=== PATIENT | female | born 1990 | race Caucasian/White ===

== ENCOUNTER → 2021-07-20 12:52 | Outpatient (BNVA) | payer OTHER, SELFPAY | PROVIDERS: PCP Physician Assistant; Visit Provider Physician Assistant Surgical ==

== ENCOUNTER → 2021-07-23 08:13 | Outpatient (BNVA) | payer OTHER, SELFPAY | PROVIDERS: PCP Physician Assistant; Visit Provider Surgery ==

== ENCOUNTER 2021-08-08 12:40 | Outpatient (REF) | payer OTHER, SELFPAY ==
--- NOTE | ~2021-08-08 | XR_ITS ---
EXAMINATION: XR CHEST CLINICAL INFORMATION: Morbid obesity COMPARISON: None TECHNIQUE: 2 views of the chest were obtained. FINDINGS: No significant abnormality is noted involving the heart, lungs, mediastinum, bony thorax or soft tissues. XR/XR chest 2V IMPRESSION: No acute disease.
--- NOTE | 2021-08-08 12:55 | ECG_ITS ---
Test Reason : E66.01 Blood Pressure : / mmHG Vent. Rate : 080 BPM Atrial Rate : 080 BPM P-R Int : 194 ms QRS Dur : 102 ms QT Int : 392 ms P-R-T Axes : 077 066 053 degrees QTc Int : 452 ms Normal sinus rhythm Normal ECG No previous ECGs available Referred By: Kaiden Kim Electronically Signed By:SMILEY PERKINS
== END 2021-08-08 12:41 | disposition home or self-care (01) ==
LOC: HO.XRAY 12:40
PROVIDERS: Visit Provider Surgery
DX: E66.01 Morbid (severe) obesity due to excess calories (principal); G47.33 Obstructive sleep apnea (adult) (pediatric); Z99.89 Dependence on other enabling machines and devices
CPT/HCPCS: 71046; 93005

== ENCOUNTER 2021-08-11 08:38 | Outpatient (REF) | payer OTHER, SELFPAY ==
[2021-08-11 08:47] LABS: MANUAL DIFF FLAG NO
[2021-08-11 09:30] LABS: Basophils Percent Auto 0.6 % (0-2); Eosinophils Absolute Auto 0.2 X10*3/uL (0.0-0.4); Eosinophils Percent Auto 2.7 % (0-4); Hematocrit 43.2 % (37.0-47.0); Hemoglobin 14.1 g/dl (12.0-16.0); Imm Gran Abs Auto 0.02 X10*3/uL (0.00-0.03); Imm Gran Pct Auto 0.3 % (0.0-0.4); Lymphocytes Absolute Auto 1.8 X10*3/uL (1.2-4.9); Lymphocytes Percent Auto 28.9 % (20-40); Mean Corpuscular HGB Conc 32.6 g/dl (31.0-35.0); Mean Corpuscular Volume 85.9 fL (80.0-98.0); Mean Platelet Volume 9.5 fL (9.4-12.3); Monocytes Absolute Auto 0.5 X10*3/uL (0.1-1.2); Monocytes Percent Auto 8.1 % (2-11); Neutrophils Absolute Auto 3.7 x10*3/uL (2.0-8.3); Neutrophils Percent Auto 59.4 % (45-73); Platelet Count 269 X10*3/uL (160-400); Red Blood Count 5.03 X10*6/uL (4.20-5.50); Red Cell Distribution Width 12.8 % (11.0-16.0); White Blood Count 6.2 X10*3/uL (4.8-10.8)
[2021-08-11 09:49] LABS: Alanine Aminotransferase 33 U/L (0-31); Albumin Level 4.3 g/dL (3.5-5.0); Alkaline Phosphatase 71 U/L (39-117); Anion Gap 14 (12-20); Aspartate Amino Transferase 30 U/L (5-31); Bilirubin Total 0.8 mg/dL (0.0-1.0); Blood Urea Nitrogen 16 mg/dL (9-16); C Reactive Protein 3.63 mg/dL (< or = 0.50); Calcium 9.7 mg/dL (8.4-10.2); Carbon Dioxide 25 mmol/L (22-29); Chloride 104 mmol/L (96-108); Cholesterol 176 mg/dL; Estimated Glomerular Filt Rate > 60; Glucose Random 100 mg/dL (60-115); HDL Cholesterol 45 mg/dL; Iron 59 mcg/dL (30-160); LDL Cholesterol Calculated 111 mg/dl; Percent Iron Saturation 17 % (15-50); Potassium 4.3 mmol/L (3.3-5.1); Sodium 139 mmol/L (135-145); Total Iron Binding Capacity 346 mcg/dL (228-428); Total Protein 7.2 g/dL (6.5-8.0); Triglycerides 100 mg/dL; Unsaturated Iron Binding 287 ug/dL
[2021-08-11 10:12] LABS: Estimated Average Glucose 114 mg/dL; Hemoglobin A1c % 5.6 %
[2021-08-11 10:32] LABS: Ferritin 69 ng/mL (10-122); TSH reflex Free T4 1.97 uIU/mL (0.32-4.0); Vitamin D 25-OH Total 20.7 ng/mL (>30)
[2021-08-11 11:02] LABS: Insulin 16 uU/mL (2-29)
[2021-08-13 04:03] LABS: Folate 17.4 ng/mL (> or = 4.0); Vitamin B12 607 pg/mL (200-900)
[2021-08-14 14:51] LABS: Calcium (PTHI) 9.5 mg/dL (8.6-10.2); PTHI 27 pg/mL (14-64)
[2021-08-15 12:32] LABS: Zinc 72 mcg/dL (60-130)
[2021-08-15 14:41] LABS: Vitamin B1 12 nmol/L (8-30)
[2021-08-15 15:01] LABS: Vitamin A 50 mcg/dL (38-98)
== END 2021-08-11 08:39 | disposition home or self-care (01) ==
LOC: HO.LAB 08:38
PROVIDERS: PCP Student in an Organized Health Care Education/Training Program; Visit Provider Surgery
DX: E66.01 Morbid (severe) obesity due to excess calories (principal); G47.33 Obstructive sleep apnea (adult) (pediatric); Z99.89 Dependence on other enabling machines and devices
CPT/HCPCS: 36415; 80053; 80061; 82306; 82607; 82728; 82746; 83036; 83525; 83540; 83970; 84425; 84443; 84590; 84630; 85025; 86140

== ENCOUNTER 2021-08-23 15:56 | Outpatient (REF) | payer OTHER, SELFPAY ==
[2021-08-24 14:24] LABS: H Pylori Breath Test Negative (Negative)
== END 2021-08-23 15:57 | disposition home or self-care (01) ==
LOC: HO.LNP 15:56
PROVIDERS: Surgery; PCP Student in an Organized Health Care Education/Training Program; Visit Provider Physician Assistant Surgical
DX: E66.01 Morbid (severe) obesity due to excess calories (principal); G47.33 Obstructive sleep apnea (adult) (pediatric); Z99.89 Dependence on other enabling machines and devices
CPT/HCPCS: 83013

== ENCOUNTER → 2021-08-27 08:24 | Outpatient (BNVA) | payer OTHER, SELFPAY | PROVIDERS: PCP Physician Assistant; Visit Provider Surgery | DX: Z13.89 Encounter for screening for other disorder (principal) ==

== ENCOUNTER → 2021-08-31 08:15 | Outpatient (BNVA) | payer OTHER, SELFPAY | PROVIDERS: PCP Physician Assistant; Visit Provider Dietitian, Registered | DX: E66.01 Morbid (severe) obesity due to excess calories (principal) | CPT/HCPCS: 97802 ==

== ENCOUNTER → 2021-09-07 09:09 | Outpatient (BNVA) | payer OTHER, SELFPAY | PROVIDERS: PCP Physician Assistant; Visit Provider Counselor Mental Health | DX: Z13.89 Encounter for screening for other disorder (principal) ==

== ENCOUNTER 2021-09-12 07:57 | Outpatient (REF) | payer OTHER, SELFPAY ==
--- NOTE | ~2021-09-12 | FL_ITS ---
EXAMINATION: XR FLUOROSCOPY UPPER GI WITH AIR CLINICAL INFORMATION: Obesity and preop. COMPARISON: None. TECHNIQUE: Routine upper GI air-contrast study was performed in upright and lying positions. FINDINGS: Following oral administration of thick barium and effervescent granules in upright view, there is normal propagation of bolus from the oral cavity through the pharynx and esophagus and into the stomach without any evidence of obstruction, narrowing or stricture. The course, caliber and peristalsis of the stomach, duodenal bulb and the sweep are normal. The mucosal pattern of stomach, duodenal bulb and the sweep is normal. There is mild gastroesophageal reflux without hiatal hernia. FLUOROSCOPY TIME: 1.1 minute DOSE AREA PRODUCT: 34.595 uGy-m2 (microgray-meter squared) FL/FL upper GI w air IMPRESSION: Mild to moderate gastroesophageal reflux without hiatal hernia. Rest of the upper GI exam is unremarkable.
--- NOTE | ~2021-09-12 | US_ITS ---
EXAMINATION: US COMPLETE ABDOMEN WITH LIVER ELASTOGRAPHY CLINICAL INFORMATION: Morbid/severe obesity due to excess calories. COMPARISON: None. TECHNIQUE: Real-time imaging of the abdominal viscera. Noninvasive ultrasound liver fibrosis assessment is performed using Sathya ElastPQ point quantification shear wave elastography (2D-SWE) with a C5-2 MHz transducer. Multiple elastography samples are obtained. FINDINGS: PANCREAS: Normal. The visualized pancreatic head and body are normal in appearance. The remainder of the pancreas is obscured from visualization by the overlying bowel gas. ABDOMINAL AORTA: The proximal, middle, and distal aortic segments are normal in caliber. INFERIOR VENA CAVA: Visualized portions are normal. LIVER: The liver demonstrates normal size, contour and increased echogenicity. No focal lesion or intrahepatic biliary duct dilatation. The right lobe measures 13.9 cm in length. The left lobe measures 12.5 cm in length. Portal flow is hepatopedal. Shear wave liver elastography median stiffness is 1.56 m/s (reference: normal median stiffness is 1.3 m/s or less). IQR/median stiffness to assess sampling precision is 0.13 (reference: good quality data set is IQR/median stiffness of 0.15 or less). GALLBLADDER: Normal. The gallbladder is physiologically distended without evidence of stones, sludge, polyps, wall thickening or pericholecystic fluid. COMMON BILE DUCT: Normal in caliber measuring 0.56 cm in diameter. RIGHT KIDNEY: Normal. No hydronephrosis. No renal calculi or focal parenchymal lesions. The kidney measures 10.9 cm in maximum dimension. LEFT KIDNEY: Normal. No hydronephrosis. No renal calculi or focal parenchymal lesions. The kidney measures 12.0 cm in maximum dimension. SPLEEN: Normal. The spleen measures 13.6 cm in maximum dimension. FREE FLUID: None. US/US abdomen comp w elastography IMPRESSION: 1. Hepatic steatosis without focal lesion. 2. The rest of the abdominal ultrasound is unremarkable. 3. Liver elastography: Median liver stiffness 1.56 m/s corresponding to cACLD ruled out . REFERENCE: Society of Radiologists in Ultrasound Liver Stiffness Thresholds (2019): LIVER STIFFNESS THRESHOLDS: *Liver Stiffness equal or less than 1.3 m/s: High probability of being normal. *Liver Stiffness less than 1.7 m/s: In the absence of other known clinical signs, rules out compensated advanced chronic liver disease. *Liver Stiffness 1.7-2.1 m/s: Suggestive of compensated advanced chronic liver disease but need further test for confirmation. *Liver Stiffness over 2.1 m/s: Rules in compensated advanced chronic liver disease. *Liver Stiffness over 2.4 m/s: Suggestive of clinically significant portal hypertension. QUALITY OF DATA SET: *IQR/Median value equal or less than 0.15 implies a quality data set. *IQR/Median value over 0.15 implies a poor quality data set. SIGNIFICANT CHANGE FROM PRIOR EXAM: Significant change if liver stiffness measurement is 10% or greater from prior exam. OTHER CONSIDERATIONS: The stage of liver fibrosis may be overestimated in the setting of acute hepatitis, liver inflammation, elevated liver function tests, hepatic vascular congestion, obstructive cholestasis, non-fasting state, and infiltrative diseases such as amyloidosis and lymphoma. In some patients with NAFLD, the liver stiffness thresholds for compensated advanced chronic liver disease may be lower. In causes other than viral hepatitis and NAFLD, liver stiffness thresholds are not well established.
== END 2021-09-12 07:58 | disposition home or self-care (01) ==
LOC: HO.US 07:57
PROVIDERS: Visit Provider Surgery
DX: Z01.818 Encounter for other preprocedural examination (principal); E66.01 Morbid (severe) obesity due to excess calories; G47.33 Obstructive sleep apnea (adult) (pediatric); Z99.89 Dependence on other enabling machines and devices
CPT/HCPCS: 74246; 76705; 76981

== ENCOUNTER → 2021-09-20 16:00 | Outpatient (BNVA) | payer OTHER, SELFPAY | PROVIDERS: PCP Physician Assistant; Visit Provider Counselor Mental Health | DX: Z13.89 Encounter for screening for other disorder (principal) ==

== ENCOUNTER → 2021-10-03 08:06 | Outpatient (BNVA) | payer OTHER, SELFPAY | PROVIDERS: PCP Physician Assistant; Visit Provider Surgery | DX: Z13.89 Encounter for screening for other disorder (principal) ==

== ENCOUNTER → 2021-10-11 16:00 | Outpatient (BNVA) | payer OTHER, SELFPAY | PROVIDERS: PCP Physician Assistant; Visit Provider Counselor Mental Health | DX: Z13.89 Encounter for screening for other disorder (principal) ==

== ENCOUNTER → 2021-10-25 13:45 | Outpatient (BNVA) | payer OTHER, SELFPAY | PROVIDERS: PCP Physician Assistant; Visit Provider Counselor Mental Health | DX: Z13.89 Encounter for screening for other disorder (principal) ==

== ENCOUNTER → 2021-11-08 16:00 | Outpatient (BNVA) | payer OTHER, SELFPAY | PROVIDERS: PCP Physician Assistant; Visit Provider Counselor Mental Health | DX: Z13.89 Encounter for screening for other disorder (principal) ==

== ENCOUNTER 2021-12-05 06:04 | Inpatient (IN) | payer OTHER, SELFPAY ==
[2021-11-26 10:24] VITALS: BMI 45.1
[2021-11-28 06:55] LABS: MANUAL DIFF FLAG NO
[2021-11-28 07:13] LABS: Basophils Percent Auto 0.5 % (0-2); Eosinophils Absolute Auto 0.2 X10*3/uL (0.0-0.4); Hematocrit 43.6 % (37.0-47.0); Hemoglobin 14.1 g/dl (12.0-16.0); Imm Gran Abs Auto 0.02 X10*3/uL (0.00-0.03); Imm Gran Pct Auto 0.3 % (0.0-0.4); Lymphocytes Absolute Auto 1.8 X10*3/uL (1.2-4.9); Lymphocytes Percent Auto 23.2 % (20-40); Mean Corpuscular HGB Conc 32.3 g/dl (31.0-35.0); Mean Corpuscular Volume 86.7 fL (80.0-98.0); Mean Platelet Volume 9.7 fL (9.4-12.3); Monocytes Absolute Auto 0.6 X10*3/uL (0.1-1.2); Neutrophils Absolute Auto 5.2 x10*3/uL (2.0-8.3); Platelet Count 254 X10*3/uL (160-400); Red Blood Count 5.03 X10*6/uL (4.20-5.50); Red Cell Distribution Width 12.6 % (11.0-16.0); White Blood Count 7.8 X10*3/uL (4.8-10.8)
[2021-11-28 07:18] LABS: INTERNATIONAL NORM RATIO 1.2 (0.9-1.1); Prothrombin Time 13.1 SEC (9.9-13.0)
[2021-11-28 07:21] LABS: Partial Thromboplastin Time 40.3 SEC (24.1-38.0)
[2021-11-28 07:22] LABS: Estimated Average Glucose 105 mg/dL; Hemoglobin A1c % 5.3 %
[2021-11-28 07:48] LABS: Alanine Aminotransferase 35 U/L (0-31); Albumin Level 4.2 g/dL (3.5-5.0); Alkaline Phosphatase 74 U/L (39-117); Anion Gap 11 (12-20); Aspartate Amino Transferase 27 U/L (5-31); Bilirubin Total 0.8 mg/dL (0.0-1.0); Blood Urea Nitrogen 14 mg/dL (9-16); C Reactive Protein 3.03 mg/dL (< or = 0.50); Calcium 9.4 mg/dL (8.4-10.2); Carbon Dioxide 28 mmol/L (22-29); Chloride 103 mmol/L (96-108); Cholesterol 161 mg/dL; Estimated Glomerular Filt Rate > 60; Glucose Random 98 mg/dL (60-115); HDL Cholesterol 39 mg/dL; LDL Cholesterol Calculated 103 mg/dl; Potassium 4.3 mmol/L (3.3-5.1); Sodium 138 mmol/L (135-145); Total Protein 7.1 g/dL (6.5-8.0); Triglycerides 95 mg/dL
[2021-11-28 08:12] LABS: TSH reflex Free T4 2.51 uIU/mL (0.32-4.0)
[2021-11-28 08:35] LABS: Insulin 12 uU/mL (2-29)
--- NOTE | 2021-12-01 10:06 | MHC.SHP ---
Pre-Procedural Eval Section A Date of Service: 12/01/21 The patient is an INPATIENT: Yes The History & Physical has been completed within 30 days and I have reviewed it.: Yes Section B Chief Complaint: obesity Relevant Family History (Specify if Yes): No Relevant Social History: None Present Medications: None Medical History: No relevant PMH History of Previous Operations: No relevant previous surgery Allergies: Allergies Allergy/AdvReac Type Severity Reaction Status Date / Time No Known Allergies Allergy Verified 11/26/21 10:29 Review of Systems Sugical H&P ROS: Negative: Constitution, Cardiovascular, Respiratory, Neurological, Psychiatric, Hem-Onc, Allergic/Immunologic, Gastrointestinal, Genitourinary, Musculoskeletal, Integumentary, Endocrine and Eyes/Ears/Nose/Throat Exam Surgical H&P Exam: Normal: HEENT, Normal: Heart, Normal: Lungs, Normal: Extremities, Normal: Abdomen, Normal: Skin and Normal: Neurological Plan Diagnosis/Plan: Unchanged I have reviewed the history and physical and performed a pertinent physical examination on my patient. No changes have occurred unless specified.
--- NOTE | 2021-12-04 09:33 | HO.ANESPROP2 ---
Documented by User: Duyen Nur NP 12/04/21 09:34 HPI - Anesthesia Eval Consult details Narrative: 31yo F for Gastrectomy Sleeve, EGD,Possible diaphragmatic hernia,Possible ventral hernia,Possible open PMFSH Active Problems Active Problems: All Active Problems (Updated 11/26/21 @ 10:23 by Tata Watkins RN) Vitamin D deficiency (Acute) Constipation (Acute) Adjustment disorder, unspecified (Acute) Obstructive sleep apnea on CPAP (Acute) Morbid obesity (Acute) Past Medical History Medical History IUD (intrauterine device) in place Migraines Family History Family History Mother No problems noted. Father Hypertension Diabetes Sister No problems noted. Sister No problems noted. Surgical History Surgical History History of wisdom tooth extraction, class I edentulism Social History Social History Are you a primary respiratory care program director to a significant other at home: No Do you presently have visiting nurse or other home services: No Alcohol intake: never Patient Tobacco Use Status: Never used Tobacco Have you been hit, kicked, punched, or otherwise hurt by someone within the past year? If so, by whom?: No Are you DNR?: No Advance Directives: No Advance Directives Information Provided: Yes Advance Directives on File: No Recently lost weight without trying: No Patient : No FDLMP: 11/05/2021 : No Poor oral hygiene: No Meds Allergies Allergy/AdvReac Type Severity Reaction Status Date / Time No Known Allergies Allergy Verified 11/26/21 10:29 Home Medications Medication Instructions Recorded Confirmed Last Taken Type multivitamin 1 tab PO DAILY 11/26/21 11/26/21 12/02/21 History psyllium 1 packet PO DAILY PRN Constipation 11/26/21 12/05/21 11/28/21 History sumatriptan succinate 100 mg tablet 25 mg PO DAILY PRN Headache 11/26/21 12/05/21 11/14/21 History pantoprazole 40 mg tablet,delayed 40 mg PO DAILY acid reflux 12/05/21 12/04/21 History release Exam Exam Date and Time: December 04, 2021 0933 Height,Weight and Vital Signs: Height 5 ft 4 in Weight 119.295 kg Pertinent Lab Results Pertinent Lab Results: Laboratory Tests 11/28/21 11/28/21 11/28/21 06:50 06:55 06:55 WBC 7.8 RBC 5.03 Hgb 14.1 Hct 43.6 MCV 86.7 MCH 28.0 MCHC 32.3 RDW 12.6 Plt Count 254 MPV 9.7 Immature Gran % (Auto) 0.3 Neut % (Auto) 66.0 Lymph % (Auto) 23.2 Sublette % (Auto) 8.0 Eos % (Auto) 2.0 Baso % (Auto) 0.5 Lymph # (Auto) 1.8 [place]lette # (Auto) 0.6 Eos # (Auto) 0.2 Baso # (Auto) 0.0 Abs Immat Gran (auto) 0.02 Absolute Neuts (auto) 5.2 Absolute Nucleated RBC 0.000 Nucleated RBC % (auto) 0.0 PT 13.1 H INR 1.2 H APTT 40.3 H Sodium Potassium Chloride Carbon Dioxide Anion Gap BUN Creatinine Estim Creat Clear Calc Estimated GFR Random Glucose Estimat Average Glucose Hemoglobin A1c % Insulin Level Calcium Total Bilirubin AST ALT Alkaline Phosphatase C-Reactive Protein Total Protein Albumin Triglycerides Cholesterol LDL Cholesterol, Calc HDL Cholesterol TSH Blood Type A Positive Antibody Screen NEGATIVE 11/28/21 11/28/21 06:55 06:55 WBC RBC Hgb Hct MCV MCH MCHC RDW Plt Count MPV Immature Gran % (Auto) Neut % (Auto) Lymph % (Auto) [place] % (Auto) Eos % (Auto) Baso % (Auto) Lymph # (Auto) [place]lette # (Auto) Eos # (Auto) Baso # (Auto) Abs Immat Gran (auto) Absolute Neuts (auto) Absolute Nucleated RBC Nucleated RBC % (auto) PT INR APTT Sodium 138 Potassium 4.3 Chloride 103 Carbon Dioxide 28 Anion Gap 11 L BUN 14 Creatinine 0.78 Estim Creat Clear Calc 134.0 Estimated GFR > 60 Random Glucose 98 Estimat Average Glucose 105 Hemoglobin A1c % 5.3 Insulin Level 12 Calcium 9.4 Total Bilirubin 0.8 AST 27 ALT 35 H Alkaline Phosphatase 74 C-Reactive Protein 3.03 H Total Protein 7.1 Albumin 4.2 Triglycerides 95 Cholesterol 161 LDL Cholesterol, Calc 103 HDL Cholesterol 39 TSH 2.51 Blood Type Antibody Screen Narrative Narrative: EKG 07/2021 Vent. Rate : 080 BPM ? ? Atrial Rate : 080 BPM ?? P-R Int : 194 ms? QRS Dur : 102 ms ? ? QT Int : 392 ms ? ? ? P-R-T Axes : 077 066 053 degrees ?? QTc Int : 452 ms ? Normal sinus rhythm Normal ECG No previous ECGs available Assessment and Plan Assessment Anesthesia Assessment: Chart Reviewed Documented by User: Valarie Lezama MD 12/05/21 07:24 [facility] Past Medical History Medical History IUD (intrauterine device) in place Migraines Family History Family History Mother No problems noted. Father Hypertension Diabetes Sister No problems noted. Sister No problems noted. Family history of problems with anesthesia: No Surgical History Surgical History History of wisdom tooth extraction, class I edentulism History of Problems with Anesthesia: No Social History Social History Are you a primary respiratory care program director to a significant other at home: No Do you presently have visiting nurse or other home services: No Alcohol intake: never Patient Tobacco Use Status: Never used Tobacco Have you been hit, kicked, punched, or otherwise hurt by someone within the past year? If so, by whom?: No Are you DNR?: No Advance Directives: No Advance Directives Information Provided: Yes Advance Directives on File: No Recently lost weight without trying: No Patient : No FDLMP: 11/05/2021 : No Poor oral hygiene: No Meds Allergies Allergy/AdvReac Type Severity Reaction Status Date / Time No Known Allergies Allergy Verified 11/26/21 10:29 Home Medications Medication Instructions Recorded Confirmed Last Taken Type multivitamin 1 tab PO DAILY 11/26/21 11/26/21 12/02/21 History psyllium 1 packet PO DAILY PRN Constipation 11/26/21 12/05/21 11/28/21 History sumatriptan succinate 100 mg tablet 25 mg PO DAILY PRN Headache 11/26/21 12/05/21 11/14/21 History pantoprazole 40 mg tablet,delayed 40 mg PO DAILY acid reflux 12/05/21 12/04/21 History release Exam Height,Weight and Vital Signs: Height 5 ft 4 in Weight 119.295 kg Vital Signs Temp Pulse Resp BP Pulse Ox O2 Del Method 12/05/21 06:27 97.3 F 83 18 149/73 H 96 Room Air Pertinent Lab Results Pertinent Lab Results: Laboratory Tests 11/28/21 11/28/21 11/28/21 06:50 06:55 06:55 WBC 7.8 RBC 5.03 Hgb 14.1 Hct 43.6 MCV 86.7 MCH 28.0 MCHC 32.3 RDW 12.6 Plt Count 254 MPV 9.7 Immature Gran % (Auto) 0.3 Neut % (Auto) 66.0 Lymph % (Auto) 23.2 [place]lette % (Auto) 8.0 Eos % (Auto) 2.0 Baso % (Auto) 0.5 Lymph # (Auto) 1.8 [place]lette # (Auto) 0.6 Eos # (Auto) 0.2 Baso # (Auto) 0.0 Abs Immat Gran (auto) 0.02 Absolute Neuts (auto) 5.2 Absolute Nucleated RBC 0.000 Nucleated RBC % (auto) 0.0 PT 13.1 H INR 1.2 H APTT 40.3 H Sodium Potassium Chloride Carbon Dioxide Anion Gap BUN Creatinine Estim Creat Clear Calc Estimated GFR Random Glucose Estimat Average Glucose Hemoglobin A1c % Insulin Level Calcium Total Bilirubin AST ALT Alkaline Phosphatase C-Reactive Protein Total Protein Albumin Triglycerides Cholesterol LDL Cholesterol, Calc HDL Cholesterol TSH Blood Type A Positive Antibody Screen NEGATIVE 11/28/21 11/28/21 06:55 06:55 WBC RBC Hgb Hct MCV MCH MCHC RDW Plt Count MPV Immature Gran % (Auto) Neut % (Auto) Lymph % (Auto) [place] % (Auto) Eos % (Auto) Baso % (Auto) Lymph # (Auto) [place] # (Auto) Eos # (Auto) Baso # (Auto) Abs Immat Gran (auto) Absolute Neuts (auto) Absolute Nucleated RBC Nucleated RBC % (auto) PT INR APTT Sodium 138 Potassium 4.3 Chloride 103 Carbon Dioxide 28 Anion Gap 11 L BUN 14 Creatinine 0.78 Estim Creat Clear Calc 134.0 Estimated GFR > 60 Random Glucose 98 Estimat Average Glucose 105 Hemoglobin A1c % 5.3 Insulin Level 12 Calcium 9.4 Total Bilirubin 0.8 AST 27 ALT 35 H Alkaline Phosphatase 74 C-Reactive Protein 3.03 H Total Protein 7.1 Albumin 4.2 Triglycerides 95 Cholesterol 161 LDL Cholesterol, Calc 103 HDL Cholesterol 39 TSH 2.51 Blood Type Antibody Screen Laboratory Results - last 24 hr 12/04/21 12/05/21 13:15 06:05 Urine Test NEGATIVE COVID-19 (IDRIS) Negative COVID-19 Clin Com See Note Airway Mallampati Class: III TM Dist: >3cm Neck ROM: Full Loose/Missing/Broken Teeth: No (Per Patient ) Heart: RRR Lungs: CTAB Assessment and Plan Assessment Anesthesia Assessment: Anesthesia Plan Discussed Final Anesthetic Review Family History of Problems with Anesthesia: No History of Problems with Anesthesia: No NPO: Yes ASA Class: III Final Preanesthetic Review: No Changes in Pt Med Stat, Meds/Allgs Chart Reviewed, Consent Obtained/Reviewed and Anes Risks/Benef Reviewed Patient Risk: Intermediate Procedure Risk: Intermediate Assessment/Block/Sedation in SS: Assess/Block/Sedation-SS Anesthetic Plan Anesthetic Plan: GA Disposition: Standard PACU and Inp. Admit - Standard Bed
[2021-12-04 13:35] LABS: COVID-19 Test Negative (Negative)
[2021-12-05] VITALS (13 sets, daily range): BP systolic 123–153; BP diastolic 63–85; PULSE 63–96; RESP 14–22; TEMP 36.3–37; O2SAT 92–100
[2021-12-05 06:46] LABS: UPreg QC Valid YES; Urine Pregnancy NEGATIVE (NEGATIVE)
--- NOTE | 2021-12-05 06:53 | PHA.MEDREC ---
Pharmacy Consult ? Medication Reconciliation Pharmacy has reviewed the medication reconciliation. completed by nursing. Britany Nolan, HannaD
[2021-12-05] MEDS: Lactated Ringers 1,000 ML 999 ML IV (07:01)
[2021-12-05] MEDS: ceFAZolin Sodium/Dextrose,Iso 2 GM/50 ML PIGGYBACK IV ×2 (07:40→13:39)
--- NOTE | 2021-12-05 10:01 | P.BOP_ITS ---
Brief Operative Note Date of Service: 12/05/21 Pre-op diagnosis: Morbid obesity with comorbidities (see below) Post-op diagnosis: same Procedure: INITIAL PATIENT BMI ON PRESENTATION AT OUR OFFICE: 51.2 kg/m2 LAST BMI BEFORE SURGERY: 45.5 kg/m2 COMORBIDITIES:sleep apnea on CPAP, GERD, liver steatosis, liver fibrosis ?The patient presented to the Weight Management Program with significant obesity that was negatively impacting the patient's comorbidities as listed above.? The program is a phased program with a special focus on preoperative medical weight management to promote substantial weight loss and prepare the patients for the second phase of the program: bariatric surgery. The patient participated in an intensive weekly lifestyle ?intervention and exercise program during which the patient ?has lost between the initial office visit and the last preoperative visit 34.8lbs, or 11.68% of initial actual body weight. It was deemed appropriate for the patient to now have bariatric surgery. In light of the current Covid-19 pandemic and the well documented strong association of obesity and increased risk of worse outcomes if infected with Covid-19 (REFERENCES: https://pubmed.ncbi.nlm.nih.gov/66450225/ ,? https://pubmed.ncbi.nlm.nih.gov/36701467/ ), any delay in undergoing bariatric surgery may lead to the patient's worsening health condition and increased?risk of more severe Covid-19 disease if infected. In addition a recent?study from [facility] published in [employer] on 06/11/2021 ([email or web address]) found that, among patients with obesity, substantial weight loss achieved with surgery was associated with improved outcomes of COVID-19 infection. The findings suggest that obesity can be a modifiable risk factor for the severity of COVID-19 infection. In addition, the patient met the BMI-criteria for bariatric surgery based on the BMI on initial presentation. The patient should not be penalized for achieving such weight loss because ?it is not sustainable long-term without surgical intervention and it was achieved in preparation for bariatric surgery ?under my direction and based on my published research ([email or web address]).[email or web address] and? [email or web address].soard.org/article/[email or web address](18)77737-X/pdf ) ?that a 10% preoperative weight loss improves long-term weight loss after surgery and reduces perioperative complications.? Insurance carriers such as [facility] have endorsed my recommendations ?and have included in their policies criteria to include a 10% preoperative weight loss requirement. PROCEDURE: Esophago-gastroscopy, laparoscopic lysis of adhesions, laparoscopic sleeve gastrectomy and laparoscopic gastropexy INDICATIONS: This is a 31 year-old female who was electively scheduled for laparoscopic, possibly open sleeve gastrectomy. The risks and complications of the procedure were discussed with the patient in advance, particularly the possibility of ; pulmonary embolism; staple line leak; bleeding; GERD; cardiac, pulmonary, or renal complications; as well as long-term problems such as insufficient weight loss, vitamin deficiency, strictures, or ulcers. The patient understood all the risks, and was in agreement to proceed with surgery. DESCRIPTION OF PROCEDURE: After informed consent was obtained from the patient, the patient was given preoperative antibiotics, and was transferred to the operating room. After successful induction of general anesthesia, pneumatic compression devices were placed on both lower extremities. An upper endoscopy was performed next. The oropharynx and esophagus appeared to be within normal limits. There was no diaphragmatic hernia present consistent with the findings of the preoperative upper GI. The stomach was entered. Then after all fluid and air were suctioned and the stomach was fully decompressed, the scope was withdrawn and secured in the mid esophagus. The patient was then prepped and draped in the usual sterile manner, and abdominal access was established at the right upper quadrant with the Kati technique. A 12 mm blunt port was inserted, and the abdomen was insufflated with CO2 to a pressure of 15 mmHg. Under direct visualization, additional ports were placed, specifically two 5 mm Versi-step ports to the left upper quadrant, and a 5 mm Versi-Step port to the right upper quadrant. 1% lidocaine plain was used to infiltrate all port sites as well as all fascia defects. Following that, the patient was placed in a steep reverse Trendelenburg posit ion. An additional 5 mm port was placed to the right flank for the Mediflex retractor that was used to retract the left lobe of the liver. The gastro-esophageal fat pad was opened with the ultrasonic device (Thunderbeat, Olympus) and the anterior esophagus and hiatus were exposed. The angle of His was opened with the ultrasonic device the fundus of the stomach from any diaphragmatic and splenic attachments. I then opened the gastrocolic ligament between the transverse colon and the greater curvature of the stomach with the ultrasonic device to enter the lesser sac and facilitate the ligation of the short gastric vessels. I started at a mid-point along the greater curvature and using the Thunderbeat, all short gastric vessels were divided all the way to the angle of His until the left krupa was completely dissected at its entirety. I then divided the gastro-colic ligament distally to a distance of about 3-4 cm proximal to the pylorus. There were extensive congenital adhesions between the pancreas and posterior gastric wall. Those were lysed completely with the ultrasonic device. Adhesiolysis took approximately 45 min to complete.? The stomach was then divided transversely with one Endo JOHANN-45 purple, one JOHANN- 45 orange load and 3 JOHANN-60 articulating orange loads using the AEON stapler and loads. Every effort was made that the gastric sleeve had a tubular shape and an even caliber throughout. Once the sleeve resection was completed, the staple line of the gastric sleeve was reinforced with Hemoclips. The resected stomach was retrieved without difficulty from the Kati port. A gastropexy was then performed in order to prevent postoperative GERD and partial gastric volvulus. Several interrupted 2.0 Surgidac sutures were placed between the sleeve's staple line and the previously divided greater omentum and gastro-colic ligament using the Endo-Stitch device. ?An upper endoscopy was performed. There was no narrowing at the GE junction. The scope was easily advanced all the way to the pylorus which was clearly visualized. There was no narrowing anywhere and the sleeve's caliber was even throughout. The sleeve's staple line was inspected and there was no evidence of ischemia, bleeding or dehiscence. At that point the gastroscope was withdrawn from the patient?s mouth while we were decompressing the bowel and the stomach from any remaining air. I looked into the lesser sac to see how the sleeve was situating and it was situating well. There was no bleeding from the staple line, spleen, or short gastric vessels. The Mediflex retractor was removed, and the undersurface of the liver was inspected and there was no bleeding. The patient was placed in supine position. I closed the fascial defect of the 12 mm port site with a figure of eight #1 Elton ysorb suture. Then 40ml of Rupivacaine plain with 10 mg of Dexamethasone were used to infiltrate the fascial closure as well as all skin incisions. A total of 7ml of Zynrelef was applied at the Kati wound. At this point, the abdomen was deflated, all ports were removed under direct vision, and no bleeding was noted from any of the port sites. The skin incisions were irrigated with saline and were closed with 4-0 absorbable monofilament sutures. Steri-Strips and OpSites were used to cover all incisions. The patient was extubated and was transferred in stable condition to the recovery room for further care. I was present and performed all schaefer parts of the procedure. Mr. Payton was the certified first assistant. There were no residents to assist with this case. Holger Kim MD, PhD, FACS Surgeon: Kaiden Kim MD Anesthesia: GETA, local and other (TAP block and 7ml of Zynrelef) Was an Fingernail Former used for this Procedure?: Yes Fingernail Former: Ashley Stephen Estimated blood loss (mL): 10 IV fluids (mL): 2,000 Urine output (mL): 0 (No Katz to record) Pathology: other (Stomach) Condition: stable Disposition: PACU
--- NOTE | 2021-12-05 10:01 | P.DS_ITS ---
DS: Providers Provider Date of Service: 12/06/21 Date of admission: 12/05/21 06:04 Primary care physician: Hugh Umanzor PA-C DS: Summary Hospital Course Hospital Course: ADMITTING DIAGNOSIS: morbid obesity, ? DISCHARGE DIAGNOSIS: same, s/p laparoscopic sleeve gastrectomy ? PAST SURGICAL HISTORY: ? PROCEDURE: upper endoscopy, laparoscopic sleeve gastrectomy ? DISCHARGE SUMMARY: ? History of Present Illness: ? The patient is a?31 year-old woman with a BMI of?51.1 kg/m2 and associated co- morbidities as described above. The patient had extensive work-up,lost?34.8 lbs preoperatively and was electively scheduled for laparoscopic, possible open sleeve gastrectomy and gastropexy. Risks and complications of the surgery were discussed with the patient in advance, particularly the possibility of , pulmonary embolism, anastomotic leak, bleeding, bowel injury, GERD, cardiac, renal or pulmonary complications. The patient understood all the risks and was in agreement with the surgical plan. ? Hospital Course: ? The patient underwent an uneventful laparoscopic sleeve gastrectomy with gastropexy on the day of admission. Postoperatively, the patient was transferred to the surgical floor. The patient received IV Acetaminophen and IV dilaudid for pain control. Patient was started on bariatric phase 1 diet POD #0. On postoperative day one, the patient was feeling well without nausea, vomiting, fevers, or tachycardia. The patient had some mild incisional pain and the abdomen was soft. ? On the morning of postoperative day one, the patient was continued on 1 ounce of water or ice every half hour. During the day, the patient did fairly well, having some incisional pain, but able to ambulate adequately and to tolerate liquids well. ? Since the patient is doing well, we decided that the patient was ready to be discharged. The patient was given instructions to follow-up with me next week and to call my office for any fever over 101, persistent abdominal pain, nausea, vomiting, GERD, symptoms of DVT such as calf tenderness, or leg swelling, or pulmonary embolism such as chest pain or shortness of breath. The patient was also instructed to drink 40-60 ounces of liquids per day using the 1-ounce cups. The patient had been given prescriptions for Tylenol for pain, Zofran prn for nausea, and pantoprazole and carafate previously. The patient was encouraged to ambulate and use the incentive spirometer. The patient was allowed to shower, but no baths, and encouraged to stay active at home. All of these instructions were given to the patient personally. All questions were answered and the patient understood all instructions, the instructions were also given to the patient in print. Time Spent with Patient Time attestation: Total time spent providing and/or coordinating discharge services: Discharge coordination time: Less than 30 minutes Quality: Safe Use of Opioids Does Pt have an Active Cancer Diagnosis on the Problem List?: No Quality: Stroke Does the patient have a stroke diagnosis?: No Physical Exam Vital Signs: Vital Signs: Last Vital Signs Temp 97.3 F 12/05/21 06:27 Pulse 83 12/05/21 06:27 Resp 18 12/05/21 06:27 BP 149/73 H 12/05/21 06:27 Pulse Ox 96 12/05/21 06:27 O2 Del Method 12/05/21 06:27 BMI result Body Mass Index 45.1 DS: Data Data Completed and Pending Pending studies at discharge: Pending at discharge 12/05/21 09:00 Surgical [PTH] Routine Labs on day of discharge: Laboratory Results - last 24 hr 12/04/21 12/05/21 13:15 06:05 Urine Test NEGATIVE COVID-19 (IDRIS) Negative COVID-19 Clin Com See Note Discharge Plan Discharge Patient Disposition: Home, Self-Care Discharge Diagnosis: s/p laparoscopic sleeve gastrectomy Referrals: Hugh Restrepo PA-C [Primary Care Provider] - 1 Week Discharge Medications: New sucralfate 100 mg/mL suspension 10 ml PO BID Qty: 400 2RF Continued docusate sodium [Colace] 100 mg capsule 100 mg PO DAILY Qty: 30 2RF sumatriptan succinate 100 mg Tablet 25 mg PO DAILY PRN (Reason: Headache) pantoprazole 40 mg tablet,delayed release (DR/EC) 40 mg PO DAILY Discontinued multivitamin Tablet 1 tab PO DAILY Metamucil Packet 1 packet PO DAILY PRN (Reason: Constipation) Rx Instructions: pt takes one pill Discharge Orders: Discharge Order (Routine); Ordered 12/06/21 Ordered By: Ronnie Payton Diet: other Activity on Discharge: No heavy lifting Stand Alone Forms: Patient Portal Discharge page Care Plan Goals: weight loss Health Concerns: morbid obesity Plan of Treatment: No tub baths, sex or returning to work until discussed at first post op appointment. No exercise, alcohol, tobacco or illegal drug use. Continue to use incentive spirometer hourly while awake. Walk in home for 5- 10 minutes every 2 hours during the first week. Follow all instructions in the bariatric handbook and call with any questions.Discharge Instructions 1. Please call your doctor or come back to the emergency room should any new symptoms arise. 2. You will receive a courtesy call from [facility] 24-48 hours after discharge. 3. Activity: abstain from alcohol, practice limited stair climbing, no bending, no driving, no exercise, no illicit substances, no lifting, no sex, no tub bath, no work. 4. Diet: continue as discussed with Dr. Kim. 5. Dressing Change/Wound Care: Your incision is covered by clear bandages and guaze underneath. If the area is tender, you may apply an ice pack for short intervals (no more than 20 minutes on, followed by at least 20 minutes off). Do not apply heat. Do not use creams, lotions, or topical antibiotics unless instructed to do so by your surgeon. These can cause infection or allergic reaction. 6. Call your doctor if: - Your temperature exceeds 101.5 F - You experience excessive pain or swelling - You have an unexpected reaction to medication - You have excessive bleeding - You experience continued vomiting/nausea - Your incision begins to separate - Your incision shows signs of infection such as increased redness, swelling, excessive pain, heat, or drainage (light blood or clear fluid is normal) 7. General instructions: No lifting greater than 5 lbs for the next 4 weeks[address] driving within 24 hours of taking narcotic pain medications. If you do not move your bowels in the next 2 days, please take milk of magnesia over the counter. Please follow the post op diet and do not advance your diet until you are seen in the office in about 2 weeks. Please walk around your home every hour or two to prevent blood clots from forming in your legs. You do not need to wake from sleeping to walk. Please sleep in a bed or couch to prevent kinking at the hips and knees. Please take your incentive spirometer (your lung nuclear physician) home with you and use it for the next few days to prevent pneumonias. You may shower, no hot tubs, baths or swimming pools. Please call the office with any questions or concerns such as increasing abdominal pain, fever, chills, shortness of breath, chest pain, leg pain or swelling, or redness or drainage from your incisions. Please stay on stage 3 diet which includes sugar free clear liquids such as ice pops and jello and broth and crystal light. Avoid all carbonation. Please drink 3 protein shakes with at least 25-30 grams of protein daily or 3 of the Celebrate 4:1 shakes which can be purchased in our office. The Celebrate shakes have all of the bariatric vitamins you need if you consume these shakes. If you are drinking other protein shakes, you will need to purchase the Celebrate multivitamins and calcium that we provide in the office (they will provide all the vitamins you need). Please make sure you are consuming at least 40-60 ounces of water in addition to your 3 protein shakes daily. Do not hesitate to contact the office with any questions at . The patient's medical history has been reviewed and they are considered low risk for post op DVT and therefore DVT prophylaxis is not considered necessary. Travel after surgery was reviewed. The patient has not disclosed any travel plans during the first 30 days after surgery and they have been advised that within the first 30 days after surgery any bus, plane, train or car travel over 2 hours in duration is contraindicated due to the possibility of developing blood clots from immobility. Any travel, needs to include periods of ambulation of 10 minutes in duration every 2 hours.? The patient was instructed to discuss any plans for travel during this period with their bariatric surgeon. Assessment: stable s/p laparoscopic sleeve gastrectomy
--- NOTE | 2021-12-05 10:05 | PM.PNGS ---
Subjective Subjective Date of Service: 12/05/21 Interval history: Feels well. Mild incisional pain. She is tolerating phase 1 bariatric diet Physical Exam Vital Signs: Vital Signs: Last Vital Signs Temp 97.3 F 12/05/21 06:27 Pulse 83 12/05/21 06:27 Resp 18 12/05/21 06:27 BP 149/73 H 12/05/21 06:27 Pulse Ox 96 12/05/21 06:27 O2 Del Method 12/05/21 06:27 BMI result Body Mass Index 45.1 GI: Inspection: Yes normal to inspection, Yes incision (clean, dry and intact) and Yes obesity Extrem: Right lower extremity: normal to inspection (No calf tenderness) Left lower extremity: normal to inspection (no calf tenderness) Objective Data Active Medications Famotidine (Famotidine/Pf 20 Mg/2 Ml Vial) 20 mg IVPUSH BID RAMOS Fentanyl (Fentanyl Citrate/Pf 100 Mcg/2 Ml Vial) 25 mcg IVPUSH Q5M PRN; Protocol PRN Reason: Pain, Moderate (Pain Scale 4-6 Hydromorphone HCl (Hydromorphone Hcl 0.5 Mg/0.5 Ml Syringe) 0.25 mg IVPUSH Q5M PRN; Protocol PRN Reason: Pain, Severe (Pain Scale 7-10) Lactated Ringer's (Lr) 1,000 mls @ 100 mls/hr IVCONT .Q10H RAMOS Promethazine HCl 6.25 mg/ (Sodium Chloride) 50.25 mls @ 201 mls/hr IV ONCE PRN PRN Reason: Nausea and Vomiting Lactated Ringer's (Lr) 1,000 mls @ 100 mls/hr IVCONT .Q10H RAMOS Metoclopramide HCl (Metoclopramide Hcl 10 Mg/2 Ml Vial) 10 mg IVPUSH Q6H PRN PRN Reason: Nausea Ondansetron HCl (Ondansetron Hcl 4 Mg/2 Ml Vial) 4 mg IVPUSH ONCE PRN PRN Reason: Nausea and Vomiting Labs CBC & Chem 7: 11/28/21 06:55 11/28/21 06:55 Labs: Laboratory Results - last 24 hr 12/04/21 12/05/21 13:15 06:05 Urine Test NEGATIVE COVID-19 (IDRIS) Negative COVID-19 Clin Com See Note Progress Note: A&P Assessment and plan (1) Morbid obesity: Status: Acute Assessment and Plan: s/p laparoscopic sleeve gastrectomy, lysis of adhesions and gastropexy Doing well Will check am labs and if OK the patient will be discharged home (2) Obstructive sleep apnea on CPAP: Status: Acute (3) GERD (gastroesophageal reflux disease): Status: Acute (4) Steatosis, liver: Status: Acute (5) Liver fibrosis: Status: Acute (6) Congenital intra-abdominal adhesions: Status: Acute (7) Status post sleeve gastrectomy: Status: Acute Time Spent With Patient Time: Total time spent is greater than 50% in coordination of care (as documented) at patient's floor/unit and/or counseling patient: Quality Stroke Does the patient have a stroke diagnosis?: No VTE Prior VTE?: No VTE Risk Level:: Surgical - moderate VTE Device Contraindication: N/A - Device Ordered VTE Drug Contraindication: Treatment Not Indicated
[2021-12-05] MEDS: Lactated Ringers 1,000 ML 100 ML IVCONT ×2 (10:20→16:55)
[2021-12-05] MEDS: Famotidine/PF 20 MG/2 ML VIAL IVPUSH ×2 (10:20→20:48)
[2021-12-05 10:26] LABS: Hematocrit 45.1 % (37.0-47.0); Hemoglobin 14.7 g/dl (12.0-16.0)
[2021-12-05 10:43] LABS: Anion Gap 17 (12-20); Blood Urea Nitrogen 13 mg/dL (9-16); Calcium 9.1 mg/dL (8.4-10.2); Carbon Dioxide 20 mmol/L (22-29); Chloride 105 mmol/L (96-108); Creatinine Clr Calc Pharmacy 127.5; Estimated Glomerular Filt Rate > 60; Glucose Random 124 mg/dL (60-115); Potassium 4.4 mmol/L (3.3-5.1); Sodium 138 mmol/L (135-145)
[2021-12-05] MEDS: Metoclopramide HCl 10 MG/2 ML VIAL IVPUSH (10:50)
[2021-12-05] MEDS: ondansetron HCL 4 MG/2 ML VIAL IVPUSH ×2 (13:39→20:48)
[2021-12-05] MEDS: 0.9 % Sodium Chloride Flush 3 ML SYRINGE IVFLUSH (20:49)
[2021-12-06] VITALS: BP 136/73; PULSE 63; RESP 18; TEMP 36.5; O2SAT 96
[2021-12-06] MEDS: Lactated Ringers 1,000 ML 100 ML IVCONT (02:13)
[2021-12-06 04:00] VITALS: BP 139/82; PULSE 60; RESP 18; TEMP 36.2; O2SAT 96
[2021-12-06] MEDS: ondansetron HCL 4 MG/2 ML VIAL IVPUSH (05:34)
[2021-12-06 05:44] LABS: Basophils Percent Auto 0.2 % (0-2); Eosinophils Percent Auto 0.1 % (0-4); Hematocrit 40.6 % (37.0-47.0); Hemoglobin 13.6 g/dl (12.0-16.0); Imm Gran Abs Auto 0.05 X10*3/uL (0.00-0.03); Imm Gran Pct Auto 0.3 % (0.0-0.4); Lymphocytes Absolute Auto 1.6 X10*3/uL (1.2-4.9); Lymphocytes Percent Auto 10.3 % (20-40); MANUAL DIFF FLAG NO; Mean Corpuscular HGB Conc 33.5 g/dl (31.0-35.0); Mean Corpuscular Hemoglobin 28.5 pg (27.0-33.0); Mean Corpuscular Volume 84.9 fL (80.0-98.0); Mean Platelet Volume 10.2 fL (9.4-12.3); Monocytes Absolute Auto 1.2 X10*3/uL (0.1-1.2); Monocytes Percent Auto 7.8 % (2-11); Neutrophils Absolute Auto 12.5 x10*3/uL (2.0-8.3); Neutrophils Percent Auto 81.3 % (45-73); Platelet Count 275 X10*3/uL (160-400); Red Blood Count 4.78 X10*6/uL (4.20-5.50); Red Cell Distribution Width 12.6 % (11.0-16.0); White Blood Count 15.4 X10*3/uL (4.8-10.8)
[2021-12-06 06:02] LABS: Anion Gap 15 (12-20); Blood Urea Nitrogen 9 mg/dL (9-16); Calcium 9.3 mg/dL (8.4-10.2); Carbon Dioxide 23 mmol/L (22-29); Chloride 103 mmol/L (96-108); Creatinine Clr Calc Pharmacy 137.6; Estimated Glomerular Filt Rate > 60; Glucose Random 94 mg/dL (60-115); Sodium 137 mmol/L (135-145)
[2021-12-06] MEDS: Famotidine/PF 20 MG/2 ML VIAL IVPUSH (07:08)
[2021-12-06 08:00] VITALS: BP 136/70; PULSE 60; RESP 17; TEMP 36.9; O2SAT 98
--- NOTE | 2021-12-06 09:57 | MHC.CM.PN ---
Met with patient. She lives with her , is independent and denies needs at home. Assisted patient in completing HCP, she chose her . Provided patient with original and copies and placed a copy in the chart. DC plan home. to drive
--- NOTE | 2021-12-06 10:03 | HO.POSTANES ---
Post Anesthesia Evaluation Post Anesthesia Evaluation Vital Signs: Vital Signs Temp Pulse Resp BP Pulse Ox O2 Del Method 12/06/21 08:00 98.5 F 60 17 136/70 98 Room Air 12/06/21 06:48 Room Air 12/06/21 04:00 97.2 F 60 18 139/82 96 Room Air 12/06/21 00:00 97.7 F 63 18 136/73 96 Room Air Anesthesia: General Endotracheal-GETA Mental Status: Awake Pain Control: Satisfactory Nausea/Vomiting: Mild Hydration: Adequate Anesthesia-Related Issues: No Anes. Related Issues
== END 2021-12-06 10:03 | disposition home or self-care (01) | DRG 621 ==
LOC: HO.SSSA 10:01 → HO.S3 11:08
PROVIDERS: Nurse Practitioner; Physician Assistant Surgical; Admitting Provider Surgery; PCP Student in an Organized Health Care Education/Training Program; Visit Provider Surgery
PROC: 0DB64Z3 Excision of Stomach, Percutaneous Endoscopic Approach, Vertical (ICD-10-PCS; CPT 43845; principal; 2021-12-05 07:30)
DX: E66.01 Morbid (severe) obesity due to excess calories (principal); G43.909 Migraine, unspecified, not intractable, without status migrainosus; K76.0 Fatty (change of) liver, not elsewhere classified; K21.9 Gastro-esophageal reflux disease without esophagitis; K66.0 Peritoneal adhesions (postprocedural) (postinfection); K74.00 Hepatic fibrosis, unspecified; G47.33 Obstructive sleep apnea (adult) (pediatric); Z20.822 Contact with and (suspected) exposure to COVID-19; Z68.41 Body mass index [BMI] 40.0-44.9, adult; Z97.5 Presence of (intrauterine) contraceptive device; Z79.899 Other long term (current) drug therapy
CPT/HCPCS: 36415; 80048; 80053; 80061; 81025; 83036; 83525; 84443; 85014; 85018; 85025; 85610; 85730; 86140; 86850; 86900; 86901; 87635; 88307; 88342; A4649; C9088; J0131; J0690; J1100; J1170; J2250; J2405; J2550; J2765; J2795; J3010

== ENCOUNTER → 2021-12-10 10:00 | Outpatient (BNVA) | payer OTHER, SELFPAY | PROVIDERS: PCP Student in an Organized Health Care Education/Training Program; Visit Provider Counselor Mental Health | DX: F43.20 Adjustment disorder, unspecified (principal); Z98.84 Bariatric surgery status | CPT/HCPCS: 90834 ==

== ENCOUNTER → 2022-01-11 14:11 | Outpatient (BNVA) | payer OTHER, SELFPAY | PROVIDERS: PCP Student in an Organized Health Care Education/Training Program; Visit Provider Dietitian, Registered | DX: E66.01 Morbid (severe) obesity due to excess calories (principal) | CPT/HCPCS: 97803 ==

== ENCOUNTER → 2022-01-25 14:38 | Outpatient (BNVA) | payer OTHER, SELFPAY | PROVIDERS: PCP Student in an Organized Health Care Education/Training Program; Referring Provider Surgery; Visit Provider Dietitian, Registered | DX: E66.01 Morbid (severe) obesity due to excess calories (principal) | CPT/HCPCS: 97803 ==

== ENCOUNTER → 2022-02-06 15:56 | Outpatient (BNVA) | payer OTHER, SELFPAY | PROVIDERS: PCP Student in an Organized Health Care Education/Training Program; Visit Provider Counselor Mental Health | DX: F43.20 Adjustment disorder, unspecified (principal) | CPT/HCPCS: 90834 ==

== ENCOUNTER → 2022-02-08 14:36 | Outpatient (BNVA) | payer OTHER, SELFPAY | PROVIDERS: PCP Student in an Organized Health Care Education/Training Program; Referring Provider Surgery; Visit Provider Dietitian, Registered | DX: E66.9 Obesity, unspecified (principal) | CPT/HCPCS: 97803 ==

== ENCOUNTER → 2022-03-11 16:11 | Outpatient (BNVA) | payer OTHER, SELFPAY | PROVIDERS: PCP Student in an Organized Health Care Education/Training Program; Referring Provider Surgery; Visit Provider Dietitian, Registered | DX: E66.9 Obesity, unspecified (principal) | CPT/HCPCS: 97803 ==

== ENCOUNTER → 2022-06-24 14:42 | Outpatient (BNVA) | payer BC, SELFPAY | PROVIDERS: PCP Student in an Organized Health Care Education/Training Program; Visit Provider Dietitian, Registered | DX: E66.9 Obesity, unspecified (principal) | CPT/HCPCS: 97803 ==

== ENCOUNTER → 2022-08-30 14:09 | Outpatient (BNVA) | payer BC, SELFPAY | PROVIDERS: PCP Student in an Organized Health Care Education/Training Program; Visit Provider Dietitian, Registered | DX: E66.9 Obesity, unspecified (principal); Z71.3 Dietary counseling and surveillance | CPT/HCPCS: 97803 ==

== ENCOUNTER 2022-09-20 06:51 | Outpatient (REF) | payer BC, SELFPAY ==
[2022-09-20 07:03] LABS: MANUAL DIFF FLAG NO
[2022-09-20 07:25] LABS: Basophils Percent Auto 0.6 % (0-2); Eosinophils Absolute Auto 0.2 X10*3/uL (0.0-0.4); Eosinophils Percent Auto 2.7 % (0-4); Hematocrit 41.4 % (37.0-47.0); Hemoglobin 13.9 g/dl (12.0-16.0); Imm Gran Abs Auto 0.01 X10*3/uL (0.00-0.03); Imm Gran Pct Auto 0.2 % (0.0-0.4); Lymphocytes Absolute Auto 2.1 X10*3/uL (1.2-4.9); Lymphocytes Percent Auto 32.4 % (20-40); Mean Corpuscular HGB Conc 33.6 g/dl (31.0-35.0); Mean Corpuscular Hemoglobin 29.9 pg (27.0-33.0); Mean Platelet Volume 9.5 fL (9.4-12.3); Monocytes Absolute Auto 0.6 X10*3/uL (0.1-1.2); Monocytes Percent Auto 8.8 % (2-11); Neutrophils Absolute Auto 3.5 x10*3/uL (2.0-8.3); Neutrophils Percent Auto 55.3 % (45-73); Platelet Count 219 X10*3/uL (160-400); Red Blood Count 4.65 X10*6/uL (4.20-5.50); Red Cell Distribution Width 12.4 % (11.0-16.0); White Blood Count 6.4 X10*3/uL (4.8-10.8)
[2022-09-20 07:34] LABS: Estimated Average Glucose 100 mg/dL; Hemoglobin A1c % 5.1 %
[2022-09-20 08:12] LABS: Alanine Aminotransferase 14 U/L (0-31); Albumin Level 4.1 g/dL (3.5-5.0); Alkaline Phosphatase 59 U/L (39-117); Anion Gap 13 (12-20); Aspartate Amino Transferase 22 U/L (5-31); Bilirubin Total 0.9 mg/dL (0.0-1.0); Blood Urea Nitrogen 14 mg/dL (9-16); C Reactive Protein 1.23 mg/dL (< or = 0.50); Calcium 9.2 mg/dL (8.4-10.2); Carbon Dioxide 26 mmol/L (22-29); Chloride 105 mmol/L (96-108); Cholesterol 182 mg/dL; Estimated Glomerular Filt Rate > 60; Glucose Random 84 mg/dL (60-115); HDL Cholesterol 44 mg/dL; Iron 88 mcg/dL (30-160); LDL Cholesterol Calculated 127 mg/dl; Percent Iron Saturation 35 % (15-50); Potassium 3.7 mmol/L (3.3-5.1); Sodium 140 mmol/L (135-145); Total Iron Binding Capacity 250 mcg/dL (228-428); Total Protein 6.5 g/dL (6.5-8.0); Triglycerides 59 mg/dL; Unsaturated Iron Binding 162 ug/dL
[2022-09-20 08:51] LABS: Ferritin 124 ng/mL (10-122); Folate 14.7 ng/mL (> or = 4.0); Insulin 4 uU/mL (2-29); Vitamin B12 1267 pg/mL (200-900); Vitamin D 25-OH Total 54.5 ng/mL (>30)
[2022-09-23 21:49] LABS: Calcium (PTHI) 9.5 mg/dL (8.6-10.2); PTHI 8 pg/mL (16-77)
[2022-09-25 06:22] LABS: Zinc 75 mcg/dL (60-130)
[2022-09-26 23:44] LABS: Vitamin A 35 mcg/dL (38-98)
[2022-09-30 06:33] LABS: Vitamin B1 22 nmol/L (8-30)
== END 2022-09-20 06:52 | disposition home or self-care (01) ==
LOC: HO.LAB 06:51
PROVIDERS: PCP Student in an Organized Health Care Education/Training Program; Visit Provider Physician Assistant Surgical
DX: K91.2 Postsurgical malabsorption, not elsewhere classified (principal); Z90.3 Acquired absence of stomach [part of]; Z98.84 Bariatric surgery status
CPT/HCPCS: 36415; 80053; 80061; 82306; 82607; 82728; 82746; 83036; 83525; 83540; 83970; 84425; 84443; 84590; 84630; 85025; 86140

== ENCOUNTER → 2022-10-29 15:19 | Outpatient (BNVA) | payer BC, SELFPAY | PROVIDERS: PCP Student in an Organized Health Care Education/Training Program; Visit Provider Physician Assistant Surgical ==

== ENCOUNTER 2022-11-14 08:15 | Outpatient (REF) | payer BC, SELFPAY ==
--- NOTE | ~2022-11-14 | US_ITS ---
EXAMINATION: US ABDOMEN LIMITED CLINICAL INFORMATION: Unspecified abdominal pain. Please assess gallbladder. COMPARISON: Ultrasound abdomen complete 09/12/2021. TECHNIQUE: Real-time imaging of the right upper quadrant abdominal viscera. FINDINGS: PANCREAS: Normal. LIVER: The liver is normal in size. The liver contour is normal. Slightly increased parenchymal echogenicity. No focal hepatic lesion. There is no intrahepatic biliary duct dilatation seen. GALLBLADDER: Multiple layering stones. Diffuse gallbladder wall thickening measuring up to 0.5 cm with associate increased vascularity within some regions of the wall. No significant pericholecystic free fluid. Negative Najera's sign. COMMON BILE DUCT: Normal in caliber measuring 0.5 cm in diameter. RIGHT KIDNEY: Normal. No hydronephrosis. No renal calculi or focal parenchymal lesions. The kidney measures 9.8 cm in maximum dimension. FREE FLUID: None. US/US abdomen limited IMPRESSION: 1. Cholelithiasis with diffuse gallbladder wall thickening suggesting acute cholecystitis in the appropriate clinical context. There is mild hyperemia associated to the gallbladder wall, which is likely reactive in nature. 2. Slightly increased parenchymal echogenicity of the liver is nonspecific and could be associated with hepatic steatosis or hepatocellular disease. Correlate with liver function tests. This result was discussed with Randi RUANO at 11/15/2022 3:57 PM and it was ascertained that the content of the report was understood at the time of direct communication.
== END 2022-11-14 08:16 | disposition home or self-care (01) ==
LOC: HO.US 08:15
PROVIDERS: Visit Provider Physician Assistant Surgical
DX: R10.9 Unspecified abdominal pain (principal)
CPT/HCPCS: 76705

== ENCOUNTER → 2022-11-25 15:50 | Outpatient (BNVA) | payer BC, SELFPAY | PROVIDERS: PCP Student in an Organized Health Care Education/Training Program; Visit Provider Surgery ==

== ENCOUNTER 2022-12-05 11:40 | Inpatient (IN) | payer BC, SELFPAY ==
[2022-11-29 20:03] VITALS: BMI 32.6
[2022-12-05] VITALS (14 sets, daily range): BP systolic 121–130; BP diastolic 67–79; PULSE 62–80; RESP 16–18; TEMP 36.1–36.9; O2SAT 96–100; BMI 32.7; BMI 34.5
--- NOTE | 2022-12-05 06:58 | P.OP_ITS ---
Operative Note Operative Note Date of Service: 12/05/22 Narrative: Preop diagnosis: [Biliary colic post laparoscopic sleeve gastrectomy] Postop diagnosis: [Same] Procedure: [Laparoscopic cholecystectomy] Surgeon: Arian Chen MD Assist: [Martha Momin RN] Anesthesia: [GET, Marcaine 0.5% plain] Estimated blood loss: [100cc] Specimen: [Gallbladder with contents] Intraoperative findings: [A single adhesive band to an epigastric trocar site was noted required lysis of adhesions; critical view of safety demonstrated with a 4-5 mm cystic duct and 3 mm cystic artery. Extensive liver bed bleeding was noted and addressed with Surgicel] Indications: [The patient is a 32-year-old woman who is status post laparoscopic sleeve gastrectomy. She has had excellent weight loss but recently started to develop symptoms of abdominal pain within 30 minutes of eating were is associat ed with flushing with radiation of the pain to her back and associated nausea. She never had diarrhea suggestive of a dumping syndrome and we discussed however altered anatomy due to sleeve gastrectomy could cause unusual biliary colic presentation. Ultrasound confirmed gallstones. We discussed options of continued medical observation verses cholecystectomy; I recommended a cholecystectomy and the patient wanted to proceed. The option of a 2nd opinion with another surgeon was also offered and declined. I also reviewed the inherent risks to surgery which include, but are not limited to: Bleeding that could require another operation or blood transfusion, the need for open surgery, the unlikely but possible issue of bile leak that could require an ERCP, the risk of retained common duct stones that could require an ERCP, the risk of common bile duct injury which would require transfer to a larger institution for another operation. Patient seemed to understand her options, declined a t ranslator or 2nd opinion and wants to proceed. Instructions regarding diet and activity reviewed and apparently understood. The patient is advised to avoid rich fatty foods postoperatively to avoid GI distress/diarrhea and advised to not lift more than 20 lb for medical reasons to minimize the risk of hernia postoperatively. I recommended that she discuss these restrictions with her employer and that she is not disabled during this time frame but can perform light duty. The patient's questions seemed to be satisfactorily answered.] Procedure: [The patient was identified in preoperative holding and again in the operating room and placed supine on the table. An appropriate time-out was performed and preemptive local used at all trocar insertion sites. I began at the patient's supraumbilical midline and placed a Veress needle through a transverse supraumbilical incision. An appropriate drop test was performed, but pressures were elevated over 15 mmHg, so this was abandoned and a standard Bergman approach used between Kocker clamps. Stay sutures of 0 Vicryl were placed on either side of midline and the fascia opened without incident. A gloved finger confirmed intraperitoneal location in the Bergman trocar was secured. A pneumoperitoneum of 15 mmHg was then obtained using carbon dioxide. I accessed the patient's abdomen through the supraumbilical midline incision using a 12 mm Bergman trocar and 30 degree/5 mm laparoscopic without incident and confirm there was no evidence of injury from the Veress needle the bowel. Next a a 5 mm epigastric and two 5 mm right subcostal ports were placed with preemptive analgesia under direct laparoscopic vision without incident and the supraumbilical trocar upsized to a 12 mm trocar under direct laparoscopic vision. There was a small adhesive band measuring approximately 5-6 mm from the omentum to the midline epigastric trocar that required lysis with electrocautery. The gallbladder was clearly identified and grasped by its fundus. There were adhesions from the gallbladder body and neck to the omentum that needed to be lysed. It was retracted cranially and anteriorly and dissection began in the lateral cystic triangle. The cystic duct was identified at its junction on the gallbladder and dissection carried medially, then circumferentially using the [place] dissector and hook. The cystic artery was then carefully identified and circumferentially dissected. Once dissection of both structures was complete and the critical view of safety demonstrated, the duct and artery were double clipped proximally and once distally and sharply divided. Electrocautery was used to remove the gallbladder from its fossa on the liver. Liver bed was rather oozy and the gallbladder was inadvertently entered which expressed stones that were retrieved. The gallbladder was removed and placed in an Endo-Catch bag and delivered from the umbilical port, during inspection for hemostasis the clips were noted to be on the respective structures, but there were areas of the liver bed that would not be rendered hemostatic with electrocautery, so Surgicel was applied, pressure held and the operative field irrigated. After several minutes, the Surgicel was removed and the patient had a hemostatic liver bed. The gallbladder was placed in an Endo-Catch bag and delivered through the umbilicus under direct laparoscopic vision. The abdomen was again inspected with the laparoscoped and a abdomen pressure reduced to again assess the liver bed for hemostasis, which appeared to be present. The patient was returned to neutral position, the abdomen deflated and the fascia of the supraumbilical incision closed with interrupted Vicryl sutures. Skin was closed with 4-0 Monocryl subcuticular sutures. Mastisol and Steri-Strips were applied followed by Band-Aids. The patient tolerated the procedure well and was extubated recovered in stable condition. All sponge instrument counts were correct. At the patient's request I called her , Raji at [phone] and apprised him of the operation, unexpected bleeding and need to admit her for observation. Questions seemed to be satisfactorily answered.]
--- NOTE | 2022-12-05 06:58 | MHC.SHP ---
Pre-Procedural Eval Section A Date of Service: 12/05/22 The patient is an INPATIENT: No The History & Physical has been completed within 30 days and I have reviewed it.: Yes Section B Chief Complaint: Calculus of gallbladder with chronic cholecystitis Allergies: Allergies Allergy/AdvReac Type Severity Reaction Status Date / Time No Known Allergies Allergy Verified 10/29/22 15:36 Plan I have reviewed the history and physical and performed a pertinent physical examination on my patient. No changes have occurred unless specified. Time Spent With Patient Time: Total time managing care of this patient today ____ minutes.
[2022-12-05 07:51] LABS: UPreg QC Valid YES; Urine Pregnancy NEGATIVE (NEGATIVE)
[2022-12-05] MEDS: Lactated Ringers 1,000 ML 100 ML IVCONT ×3 (08:15→23:27)
--- NOTE | 2022-12-05 09:20 | HO.ANESPROP2 ---
Documented by User: Duyen Nur NP 12/03/22 15:24 HPI - Anesthesia Eval Consult details Narrative: 32yo F for Cholecystectomy Laparoscopic,poss open, PMFSH Active Problems Active Problems: All Active Problems (Updated 11/29/22 @ 20:03 by Faustina Dhillon RN) Vitamin D deficiency (Acute) Constipation (Acute) Adjustment disorder, unspecified (Acute) GERD (gastroesophageal reflux disease) (Acute) Steatosis, liver (Acute) Liver fibrosis (Acute) Congenital intra-abdominal adhesions (Acute) Status post sleeve gastrectomy (Acute) Obesity (Acute) Abdominal pain (Acute) Chronic calculous cholecystitis (Acute) Obstructive sleep apnea on CPAP (Acute) Morbid obesity (Acute) Past Medical History Medical History IUD (intrauterine device) in place Migraines Morbid obesity Obstructive sleep apnea on CPAP Family History Family History Mother No problems noted. Father Hypertension Diabetes Sister No problems noted. Sister No problems noted. Family history of problems with anesthesia: No Surgical History Surgical History History of gastric surgery History of wisdom tooth extraction, class I edentulism History of Problems with Anesthesia: No Social History Social History Are you a primary field care advocate to a significant other at home: No Do you presently have visiting nurse or other home services: No Alcohol intake: never Patient Tobacco Use Status: Never used Tobacco Use of substances other than those prescribed or required for medical reasons: Yes Substance Use Frequency: Weekly Are you DNR?: No Advance Directives: No Advance Directives Information Provided: Yes Advance Directives on File: No Recently lost weight without trying: No Nutrition Risks: No Nutritional Risk Patient : No service: No Current occupational status: employed Meds Allergies Allergy/AdvReac Type Severity Reaction Status Date / Time No Known Allergies Allergy Verified 12/05/22 07:49 Home Medications Medication Instructions Recorded Confirmed Last Taken Type sumatriptan succinate 100 mg tablet 25 mg PO DAILY PRN Headache 11/26/21 11/29/22 11/14/21 History bariatric fusion vitamins 1 cap PO DAILY 05/24/22 11/29/22 Unknown History polyethylene glycol 3350 17 17 g PO DAILY PRN Constipation 10/29/22 11/29/22 Unknown History gram/dose oral powder (Miralax) Exam Exam Date and Time: December 03, 2022 1523 Height,Weight and Vital Signs: Height 5 ft 4 in Weight 86.183 kg Pertinent Lab Results Pertinent Lab Results: Laboratory Tests 09/20/22 09/20/22 07:00 07:00 WBC 6.4 Hgb 13.9 Hct 41.4 Plt Count 219 Sodium 140 Potassium 3.7 Chloride 105 Carbon Dioxide 26 BUN 14 Creatinine 0.74 Narrative Narrative: EKG 2021 Vent. Rate : 080 BPM ? ? Atrial Rate : 080 BPM ?? P-R Int : 194 ms? QRS Dur : 102 ms ? ? QT Int : 392 ms ? ? ? P-R-T Axes : 077 066 053 degrees ?? QTc Int : 452 ms ? Normal sinus rhythm Normal ECG No previous ECGs available Assessment and Plan Assessment Anesthesia Assessment: Chart Reviewed Final Anesthetic Review Family History of Problems with Anesthesia: No History of Problems with Anesthesia: No Documented by User: Gabriela Mcclain DO 12/05/22 10:00 HPI - Anesthesia Eval Consult details Narrative: 32yo F for Cholecystectomy Laparoscopic, poss open. HCG neg. Since weight loss after gastric sleeve surgery, no longer needs CPAP. PMFSH Past Medical History Medical History IUD (intrauterine device) in place Migraines Morbid obesity Obstructive sleep apnea on CPAP Patient : No Family History Family History Mother No problems noted. Father Hypertension Diabetes Sister No problems noted. Sister No problems noted. Family history of problems with anesthesia: No Surgical History Surgical History History of gastric surgery History of wisdom tooth extraction, class I edentulism History of Problems with Anesthesia: No Social History Social History Are you a primary field care advocate to a significant other at home: No Do you presently have visiting nurse or other home services: No Alcohol intake: never Patient Tobacco Use Status: Never used Tobacco Use of substances other than those prescribed or required for medical reasons: Yes Substance Use Frequency: Weekly Are you DNR?: No Advance Directives: No Advance Directives Information Provided: Yes Advance Directives on File: No Recently lost weight without trying: No Nutrition Risks: No Nutritional Risk Patient : No service: No Current occupational status: employed Meds Allergies Allergy/AdvReac Type Severity Reaction Status Date / Time No Known Allergies Allergy Verified 12/05/22 07:49 Home Medications Medication Instructions Recorded Confirmed Last Taken Type sumatriptan succinate 100 mg tablet 25 mg PO DAILY PRN Headache 11/26/21 11/29/22 11/14/21 History bariatric fusion vitamins 1 cap PO DAILY 05/24/22 11/29/22 Unknown History polyethylene glycol 3350 17 17 g PO DAILY PRN Constipation 10/29/22 11/29/22 Unknown History gram/dose oral powder (Miralax) Exam Exam Date and Time: December 05, 2022 0915 Height,Weight and Vital Signs: Height 5 ft 4 in Weight 86.183 kg Vital Signs Temperature 98.4 F 12/05/22 07:50 Pulse Rate 70 12/05/22 07:50 Respiratory Rate 16 12/05/22 07:50 Blood Pressure 121/79 12/05/22 07:50 Pulse Oximetry 100 12/05/22 07:50 Oxygen Delivery Method Room Air 12/05/22 07:50 Temperature 98.4 F 12/05/22 07:50 Pulse Rate 70 12/05/22 07:50 Respiratory Rate 16 12/05/22 07:50 Blood Pressure 121/79 12/05/22 07:50 Pulse Oximetry 100 12/05/22 07:50 Oxygen Delivery Method Room Air 12/05/22 07:50 Airway Mallampati Class: I TM Dist: >3cm Neck ROM: Full Loose/Missing/Broken Teeth: No Heart: S1S2 Lungs: CTAB Assessment and Plan Assessment Anesthesia Assessment: Anesthesia Plan Discussed and Chart Reviewed Final Anesthetic Review Family History of Problems with Anesthesia: No History of Problems with Anesthesia: No NPO: Yes ASA Class: II Final Preanesthetic Review: No Changes in Pt Med Stat, Meds/Allgs Chart Reviewed, Consent Obtained/Reviewed and Anes Risks/Benef Reviewed Patient Risk: Low Procedure Risk: Low Anesthetic Plan Anesthetic Plan: GA and Agree w/ Assess. and Plan Disposition: Standard PACU
[2022-12-05] MEDS: HYDROmorphone HCl 0.5 MG/0.5 ML SYRINGE 0.25 MG IVPUSH ×2 (11:48→12:04)
[2022-12-05] MEDS: Acetaminophen 325 MG TABLET 650 MG PO (12:06)
[2022-12-05 12:28] LABS: Basophils Percent Auto 0.3 % (0-2); Eosinophils Percent Auto 0.3 % (0-4); Hematocrit 42.5 % (37.0-47.0); Imm Gran Abs Auto 0.05 X10*3/uL (0.00-0.03); Imm Gran Pct Auto 0.3 % (0.0-0.4); Lymphocytes Absolute Auto 0.8 X10*3/uL (1.2-4.9); Lymphocytes Percent Auto 5.8 % (20-40); MANUAL DIFF FLAG SCAN; Mean Corpuscular HGB Conc 32.9 g/dl (31.0-35.0); Mean Corpuscular Hemoglobin 29.4 pg (27.0-33.0); Mean Corpuscular Volume 89.3 fL (80.0-98.0); Mean Platelet Volume 9.7 fL (9.4-12.3); Monocytes Absolute Auto 0.4 X10*3/uL (0.1-1.2); Monocytes Percent Auto 2.7 % (2-11); Neutrophils Percent Auto 90.6 % (45-73); Platelet Count 206 X10*3/uL (160-400); Red Blood Count 4.76 X10*6/uL (4.20-5.50); Red Cell Distribution Width 12.4 % (11.0-16.0); SCAN SMEAR FLAG 1; White Blood Count 14.3 X10*3/uL (4.8-10.8)
[2022-12-05] MEDS: oxyCODONE HCl Immed Release 5 MG TABLET PO ×2 (12:34→18:28)
[2022-12-05 12:44] LABS: Anion Gap 14 (12-20); Blood Urea Nitrogen 13 mg/dL (9-16); Calcium 9.5 mg/dL (8.4-10.2); Carbon Dioxide 23 mmol/L (22-29); Chloride 106 mmol/L (96-108); Creatinine Clr Calc Pharmacy 105.6; Estimated Glomerular Filt Rate > 60; Glucose Random 139 mg/dL (60-115); Potassium 4.2 mmol/L (3.3-5.1); Sodium 139 mmol/L (135-145)
[2022-12-05 12:46] LABS: SLIDE REVIEW VERIFIED
--- NOTE | 2022-12-05 12:55 | PM.PNGS ---
Subjective Subjective Date of Service: 12/05/22 Patient reports: still having pain and nausea Interval history: The patient is seen in 377 and reports nausea and better pain control but no vomiting. She otherwise denies chest pain, difficulty breathing or shortness of breath. She has received Tylenol and Dilaudid, 0.5 mg. Physical Exam Vital Signs: Vital Signs: Last Vital Signs Temp 98 F 12/05/22 12:33 Pulse 65 12/05/22 12:33 Resp 16 12/05/22 12:33 BP 122/72 12/05/22 12:33 Pulse Ox 100 12/05/22 12:33 O2 Del Method Room Air 12/05/22 12:33 O2 Flow Rate 2 12/05/22 11:33 BMI result Body Mass Index 32.6 On exam, she is nontoxic She is having no acute respiratory distress She has expected abdominal discomfort Objective Data Active Medications Acetaminophen (Acetaminophen 325 Mg Tablet) 975 mg PO Q6H PRN PRN Reason: Pain, Mild (Pain Scale 1-3) Docusate Sodium (Docusate Sodium 100 Mg Capsule) 200 mg PO BID RAMOS Hydromorphone HCl (Hydromorphone Hcl 0.5 Mg/0.5 Ml Syringe) 0.5 mg IVPUSH Q5M PRN; Protocol PRN Reason: Pain, Severe (Pain Scale 7-10) Hydromorphone HCl (Hydromorphone Hcl 0.5 Mg/0.5 Ml Syringe) 0.25 mg IVPUSH Q2H PRN; Protocol PRN Reason: Pain, Moderate(Pain Scale 4-6) Last Admin: 12/05/22 12:04 Dose: 0.25 mg Documented By: RADAMES Hydromorphone HCl (Hydromorphone Hcl 0.5 Mg/0.5 Ml Syringe) 0.5 mg IVPUSH Q2H PRN; Protocol PRN Reason: Pain, Severe (Pain Scale 7-10) Lactated Ringer's (Lr) 1,000 mls @ 100 mls/hr IVCONT .Q10H RAMOS Last Admin: 12/05/22 08:15 Dose: 100 mls/hr Documented By: CHAN Promethazine HCl 12.5 mg/ (Sodium Chloride) 50.5 mls @ 202 mls/hr IV ONCE PRN PRN Reason: Nausea and Vomiting Ondansetron HCl (Ondansetron Hcl 4 Mg/2 Ml Vial) 4 mg IVPUSH Q6H PRN PRN Reason: Nausea and Vomiting Oxycodone HCl (Oxycodone Hcl Immed Release 5 Mg Tablet) 5 mg PO Q4H PRN PRN Reason: Pain, Moderate(Pain Scale 4-6) Last Admin: 12/05/22 12:34 Dose: 5 mg Documented By: RADAMES Labs 12/05/22 12:21 12/05/22 12:21 Labs: Laboratory Results - last 24 hr 12/05/22 12/05/22 12/05/22 07:40 12:21 12:21 MCV 89.3 MCH 29.4 MCHC 32.9 RDW 12.4 Plt Count 206 MPV 9.7 Immature Gran % (Auto) 0.3 Neut % (Auto) 90.6 H Lymph % (Auto) 5.8 L [place] % (Auto) 2.7 Eos % (Auto) 0.3 Baso % (Auto) 0.3 Lymph # (Auto) 0.8 L [place] # (Auto) 0.4 Eos # (Auto) 0.0 Baso # (Auto) 0.0 Abs Immat Gran (auto) 0.05 H Absolute Neuts (auto) 13.0 H Absolute Nucleated RBC 0.000 Nucleated RBC % (auto) 0.0 Smear Tech's Comments VERIFIED Anion Gap 14 Estim Creat Clear Calc 105.6 Estimated GFR > 60 Random Glucose 139 H Calcium 9.5 Urine Test NEGATIVE Procedures Date of Service Date of Service: 12/05/22 Progress Note: A&P Assessment and plan (1) Hx laparoscopic cholecystectomy: Status: Acute (2) Status post sleeve gastrectomy: Status: Acute (3) Chronic calculous cholecystitis: Status: Acute Plan Patient will be admitted for observation. Repeat CBC and CMP in the morning. I should be contacted for worsening pain, hypotension, worsening nausea or vomiting. Antiemetics have been ordered; patient can start clears when her nausea is improved Importance of avoiding aspirin and NSAIDs in the postoperative. Given the raw/oozing liver surface was reviewed and apparently understood. Patient will use Tylenol and/or narcotics in the perioperative phase. Her prescription has been sent to her pharmacy. Patient's , Raji, was contacted by telephone at [phone] to give him an update and disclosed her room number, [id number]. His questions seemed to be answered. Time Spent With Patient Time: Total time managing care of this patient today ____ minutes. Quality Stroke Does the patient have a stroke diagnosis?: No VTE Prior VTE?: No VTE Risk Level:: Surgical - moderate VTE Device Contraindication: N/A - Device Ordered VTE Drug Contraindication: Treatment Not Indicated
--- NOTE | 2022-12-05 13:38 | PHA.MEDREC ---
Pharmacy Consult ? Medication Reconciliation Pharmacy has reviewed the medication reconciliation completed by nursing.
[2022-12-05] MEDS: Acetaminophen 325 MG TABLET 975 MG PO (18:29)
[2022-12-05] MEDS: ondansetron HCL 4 MG/2 ML VIAL IVPUSH (20:53)
[2022-12-06 04:00] VITALS: BP 120/62; PULSE 60; RESP 18; TEMP 36.4; O2SAT 98
[2022-12-06] MEDS: Acetaminophen 325 MG TABLET 975 MG PO ×2 (05:26→11:18)
[2022-12-06 06:18] LABS: Alanine Aminotransferase 32 U/L (0-31); Albumin Level 3.5 g/dL (3.5-5.0); Alkaline Phosphatase 48 U/L (39-117); Anion Gap 12 (12-20); Aspartate Amino Transferase 45 U/L (5-31); Bilirubin Total 0.9 mg/dL (0.0-1.0); Blood Urea Nitrogen 7 mg/dL (9-16); Calcium 9.4 mg/dL (8.4-10.2); Carbon Dioxide 25 mmol/L (22-29); Chloride 104 mmol/L (96-108); Creatinine Clr Calc Pharmacy 132.9; Estimated Glomerular Filt Rate > 60; Glucose Random 99 mg/dL (60-115); Sodium 137 mmol/L (135-145); Total Protein 6.3 g/dL (6.5-8.0)
[2022-12-06 07:25] LABS: MANUAL DIFF FLAG NO
[2022-12-06 07:26] LABS: Basophils Percent Auto 0.2 % (0-2); Eosinophils Percent Auto 0.2 % (0-4); Hematocrit 39.7 % (37.0-47.0); Hemoglobin 13.2 g/dl (12.0-16.0); Imm Gran Abs Auto 0.04 X10*3/uL (0.00-0.03); Imm Gran Pct Auto 0.3 % (0.0-0.4); Lymphocytes Absolute Auto 1.9 X10*3/uL (1.2-4.9); Lymphocytes Percent Auto 15.4 % (20-40); Mean Corpuscular HGB Conc 33.2 g/dl (31.0-35.0); Mean Corpuscular Hemoglobin 29.5 pg (27.0-33.0); Mean Corpuscular Volume 88.6 fL (80.0-98.0); Monocytes Absolute Auto 0.9 X10*3/uL (0.1-1.2); Monocytes Percent Auto 7.1 % (2-11); Neutrophils Absolute Auto 9.3 x10*3/uL (2.0-8.3); Neutrophils Percent Auto 76.8 % (45-73); Platelet Count 240 X10*3/uL (160-400); Red Blood Count 4.48 X10*6/uL (4.20-5.50); Red Cell Distribution Width 12.5 % (11.0-16.0); White Blood Count 12.1 X10*3/uL (4.8-10.8)
[2022-12-06 07:28] VITALS: BP 123/66; PULSE 75; RESP 18; TEMP 37.2; O2SAT 99
--- NOTE | 2022-12-06 07:56 | PM.PNGS ---
Subjective Subjective Date of Service: 12/06/22 Patient reports: nausea and vomiting Interval history: Patient reports predominantly upper abdominal and some back pain in her back/upper neck as to be expected from a pneumoperitoneum. She tried oxycodone overnight and had nausea and some vomiting. She is tolerating Tylenol and was tolerating liquids until trying the narcotic. She seems to have vomiting related to the narcotic. She otherwise denies dizziness, chest pain, odynophagia, dysphagia or GERD. She specifically denies any right flank or right-sided lower quadrant or pelvic pain suggestive of ongoing bleeding from the liver. Physical Exam Vital Signs: Vital Signs: Last Vital Signs Temp 98.9 F 12/06/22 07:28 Pulse 75 12/06/22 07:28 Resp 18 12/06/22 07:28 BP 123/66 12/06/22 07:28 Pulse Ox 99 12/06/22 07:28 O2 Del Method Room Air 12/06/22 07:28 O2 Flow Rate 2 12/05/22 11:33 BMI result Body Mass Index 34.5 On exam she is nontoxic and in surprisingly good spirits Her sclera anicteric She is in no acute respiratory distress Abdomen has expected incisional tenderness with no pelvic pain suggestive of ongoing bleeding Objective Data Active Medications Acetaminophen (Acetaminophen 325 Mg Tablet) 975 mg PO Q6H PRN PRN Reason: Pain, Mild (Pain Scale 1-3) Last Admin: 12/06/22 05:26 Dose: 975 mg Documented By: KALIN Docusate Sodium (Docusate Sodium 100 Mg Capsule) 200 mg PO BID [facility] Last Admin: 12/05/22 21:49 Dose: Not Given Documented By: WILY Non-Admin Reason: Nausea Lactated Ringer's (Lr) 1,000 mls @ 100 mls/hr IVCONT .Q10H [facility] Last Admin: 12/05/22 23:27 Dose: 100 mls/hr Documented By: KALIN Ondansetron HCl (Ondansetron Hcl 4 Mg/2 Ml Vial) 4 mg IVPUSH Q6H PRN PRN Reason: Nausea and Vomiting Last Admin: 12/05/22 20:53 Dose: 4 mg Documented By: WILY Ondansetron HCl (Ondansetron Odt 4 Mg Tab.Rapdis) 4 mg TRANSLINGU Q6H PRN PRN Reason: Nausea and Vomiting Labs 12/06/22 05:29 12/06/22 05:29 Labs: Laboratory Results - last 24 hr 12/05/22 12/05/22 12/06/22 12:21 12:21 05:29 MCV 89.3 MCH 29.4 MCHC 32.9 RDW 12.4 Plt Count 206 MPV 9.7 Immature Gran % (Auto) 0.3 Neut % (Auto) 90.6 H Lymph % (Auto) 5.8 L [place] % (Auto) 2.7 Eos % (Auto) 0.3 Baso % (Auto) 0.3 Lymph # (Auto) 0.8 L [place] # (Auto) 0.4 Eos # (Auto) 0.0 Baso # (Auto) 0.0 Abs Immat Gran (auto) 0.05 H Absolute Neuts (auto) 13.0 H Absolute Nucleated RBC 0.000 Nucleated RBC % (auto) 0.0 Smear Tech's Comments VERIFIED Anion Gap 14 12 Estim Creat Clear Calc 105.6 132.9 Estimated GFR > 60 > 60 Random Glucose 139 H 99 Calcium 9.5 9.4 Total Bilirubin 0.9 AST 45 H ALT 32 H Alkaline Phosphatase 48 Total Protein 6.3 L Albumin 3.5 12/06/22 05:29 MCV 88.6 MCH 29.5 MCHC 33.2 RDW 12.5 Plt Count 240 MPV 10.0 Immature Gran % (Auto) 0.3 Neut % (Auto) 76.8 H Lymph % (Auto) 15.4 L [place] % (Auto) 7.1 Eos % (Auto) 0.2 Baso % (Auto) 0.2 Lymph # (Auto) 1.9 [place] # (Auto) 0.9 Eos # (Auto) 0.0 Baso # (Auto) 0.0 Abs Immat Gran (auto) 0.04 H Absolute Neuts (auto) 9.3 H Absolute Nucleated RBC 0.000 Nucleated RBC % (auto) 0.0 Smear Tech's Comments Anion Gap Estim Creat Clear Calc Estimated GFR Random Glucose Calcium Total Bilirubin AST ALT Alkaline Phosphatase Total Protein Albumin Procedures Date of Service Date of Service: 12/06/22 Progress Note: A&P Assessment and plan (1) Hx laparoscopic cholecystectomy: Status: Acute (2) Status post sleeve gastrectomy: Status: Acute (3) Chronic calculous cholecystitis: Status: Acute Plan I have written to stop all narcotics and ordered Zofran including a script for at home. Explained to the patient her vital signs and hemoglobin is well as are LFTs are normal and, assuming we can control her nausea, she can be discharged later today on liquids and advance her diet at home. I will reassess her after 12 noon today for possible discharge. Time Spent With Patient Time: Total time managing care of this patient today ____ minutes. Quality Stroke Does the patient have a stroke diagnosis?: No VTE Prior VTE?: No VTE Risk Level:: Surgical - moderate VTE Device Contraindication: N/A - Device Ordered VTE Drug Contraindication: Treatment Not Indicated
[2022-12-06] MEDS: Ondansetron ODT 4 MG TAB.RAPDIS TRANSLINGU (09:10)
[2022-12-06] MEDS: Docusate Sodium 100 MG CAPSULE 200 MG PO (09:19)
[2022-12-06] MEDS: Lactated Ringers 1,000 ML 100 ML IVCONT (09:19)
--- NOTE | 2022-12-06 10:08 | MHC.CM.PN ---
PATIENT LIVES WITH SPOUSE HCP ON FILE AND VERIFIED. NO DME OR [facility] SERVICES PLAN IS LIKELY HOME TODAY - SELF CARE IF TOLERATES PO SPOUSE IN ROOM TO TRANSPORT.
--- NOTE | 2022-12-06 13:16 | HO.POSTANES ---
Post Anesthesia Evaluation Post Anesthesia Evaluation Date of Service: 12/05/22 Vital Signs: Vital Signs Temp Pulse Resp BP Pulse Ox O2 Del Method 12/06/22 07:28 98.9 F 75 18 123/66 99 Room Air 12/06/22 04:00 97.5 F 60 18 120/62 98 Room Air Anesthesia: General Endotracheal-GETA Mental Status: Awake Pain Control: Satisfactory Nausea/Vomiting: None Hydration: Adequate Anesthesia-Related Issues: No Anes. Related Issues
--- NOTE | 2022-12-06 13:54 | PM.DS ---
DS: Providers Provider Date of Service: 12/06/22 Date of admission: 12/05/22 11:40 Primary care physician: Hugh Umanzor PA-C DS: Diagnosis Discharge Diagnosis (1) Hx laparoscopic cholecystectomy: Status: Acute (2) Status post sleeve gastrectomy: Status: Acute (3) Chronic calculous cholecystitis: Status: Acute DS: Summary Hospital Course Hospital Course: See H&P in op note for full details. Briefly, this 32-year-old woman was experiencing symptoms of chronic calculous cholecystitis and underwent laparoscopic cholecystectomy. There was significant intraoperative bleeding and she was kept overnight for observation. On the day of discharge, she was tolerating clear liquids and her nausea had improved. Her hemoglobin remained stable and her vital signs remained stable. Overall condition at the time of discharge is improved. Time Spent with Patient Time attestation: Total time managing care of this patient today ____ minutes. Discharge coordination time: Greater than 30 minutes Quality: Safe Use of Opioids Does Pt have an Active Cancer Diagnosis on the Problem List?: No Quality: Stroke Does the patient have a stroke diagnosis?: No Physical Exam Vital Signs: Vital Signs: Last Vital Signs Temp 98.9 F 12/06/22 07:28 Pulse 75 12/06/22 07:28 Resp 18 12/06/22 07:28 BP 123/66 12/06/22 07:28 Pulse Ox 99 12/06/22 07:28 O2 Del Method Room Air 12/06/22 07:28 O2 Flow Rate 2 12/05/22 11:33 BMI result Body Mass Index 34.5 DS: Data Data Completed and Pending Completed studies during hospitalization [Text1]: Procedures Excision of Stomach, Percutaneous Endoscopic Approach, Vertical (12/05/21) Release Peritoneum, Percutaneous Endoscopic Approach (12/05/21) Pending studies at discharge: Pending at discharge 12/05/22 10:38 Surgical [PTH] Routine Labs on day of discharge: Laboratory Results - last 24 hr 12/06/22 12/06/22 05:29 05:29 WBC 12.1 H RBC 4.48 Hgb 13.2 Hct 39.7 MCV 88.6 MCH 29.5 MCHC 33.2 RDW 12.5 Plt Count 240 MPV 10.0 Immature Gran % (Auto) 0.3 Neut % (Auto) 76.8 H Lymph % (Auto) 15.4 L [place] % (Auto) 7.1 Eos % (Auto) 0.2 Baso % (Auto) 0.2 Lymph # (Auto) 1.9 [place] # (Auto) 0.9 Eos # (Auto) 0.0 Baso # (Auto) 0.0 Abs Immat Gran (auto) 0.04 H Absolute Neuts (auto) 9.3 H Absolute Nucleated RBC 0.000 Nucleated RBC % (auto) 0.0 Sodium 137 Potassium 4.0 Chloride 104 Carbon Dioxide 25 Anion Gap 12 BUN 7 L Creatinine 0.67 Estim Creat Clear Calc 132.9 Estimated GFR > 60 Random Glucose 99 Calcium 9.4 Total Bilirubin 0.9 AST 45 H ALT 32 H Alkaline Phosphatase 48 Total Protein 6.3 L Albumin 3.5 Discharge Plan Discharge Anticipated Discharge Date/Time: 12/06/22 13:53 Patient Disposition: Home, Self-Care Discharge Diagnosis: Chronic calculous Cholecystitis Referrals: Hugh Restrepo PA-C [Primary Care Provider] - 1 Week Arian Chen MD [Physician] - 1 Week Discharge Medications: New oxycodone 5 mg tablet 5 mg PO Q4H PRN (Reason: pain) Qty: 14 0RF Rx Instructions: Partial Fill upon patient request. ondansetron HCl 4 mg tablet 4 mg PO Q6H PRN (Reason: nausea and vomiting) Qty: 10 0RF Continued vitamin A palmitate 3,000 mcg (10,000 unit) capsule 10,000 unit PO DAILY Qty: 90 3RF sumatriptan succinate 100 mg Tablet 25 mg PO DAILY PRN (Reason: Headache) bariatric fusion vitamins 1 cap PO DAILY polyethylene glycol 3350 [Miralax] 17 gram/dose powder 17 g PO DAILY PRN (Reason: Constipation) Discharge Orders: Discharge Order (Routine); Ordered 12/06/22 Ordered By: Arian Chen Diet: Low Fat Activity on Discharge: No heavy lifting Activity Restrictions/Additional Instructions: You had a laparoscopic cholecystectomy performed by Dr. Chen. It is normal to experience some neck or shoulder pain from the gas used to inflate your abdomen. It is also normal to have pain or discomfort in your abdomen/belly as well as at the trocar sites (small incisions). This discomfort will resolve over the next 1-3 days, however, if it gets progressively worse, if you should develop worsening pain, nausea, vomiting and cannot keep liquids down, chest pain, difficulty breathing or shortness of breath, fevers over 100F please report to the nearest emergency department. Unless otherwise directed by Dr. Chen, you should resume taking your regular medications. As Dr. Chen reviewed in the office, you must not lift more than 20 lb for the next 4 weeks. Strenuous activities can tear out your sutures and cause an incisional hernia that would require another operation. Activities to be avoided include: sports, running, bicycling, yoga, lifting more than 20 lb, digging, gardening, splitting/carrying wood, swimming, hiking uphill, and other activities. If you have questions regarding this specific activity, please check with Dr. Chen. If your incisions become red, swollen, tender or draining pus, please contact Dr. Chen or go to the nearest emergency department. Do not shower or bathe for 48 hours. If there are bandages on your incisions, remove them in 48 hours. Do not allow your bandages to become wet for 48 hours. Do not soak in a tub or swimming pool until your incisions have completely sealed, usually 2 or more weeks. After the dressings are removed in 48 hours, you will notice paper tapes called butterflies/Steri-Strips. These tapes will fall off on their own in 1-2 weeks. You do not need to apply another bandage unless your clothing irritates your incisions. If you need to place another Band-Aid on your incisions, be sure to wait until the Steri strip is dry. You have been prescribed narcotic pain medicine that will cause constipation. Please purchase [id number] stool softener known as Colace/docusate, 100 mg. Take 2 tablets with breakfast and the morning and 2 tablets in the evening after dinner until your bowels are moving and urine or longer taking narcotics. Please note that if you are not taking narcotics, the general anesthesia for the procedure can still cause constipation. If you experience diarrhea, stop taking the stool softener medicine. You can take [id number] Tylenol/acetaminophen for pain unless you have an allergy or medical reason you are not not allowed to take these medications, such as peptic ulcers, taking blood thinners or kidney problems. You should also use ice packs to the operative site to help minimize pain and swelling for the first 3 days, or as needed afterwards. Unless there is a medical reason to avoid these medicines, you should take 2 [id number] Tylenol for the first 3 days to help with pain. Remember that the gallbladder helps to to digest fatty foods. If you eat fried foods; rich, creamy sauces; cheese; gravies or other such heavy, greasy foods, you will likely develop gas and bloating and diarrhea. To minimize this risk, eat a high protein, high-fiber, low-fat diet for the next few weeks. Care Plan Goals: Allow postoperative healing Health Concerns: Avoid NSAIDs and aspirin for the next 5 days Plan of Treatment: Allow postoperative healing Assessment: s/p lap lashae
--- NOTE | 2022-12-06 14:08 | MHC.CM.PN ---
PATIENT IS DC HOME - SELF CARE RN AWARE
== END 2022-12-06 14:53 | disposition home or self-care (01) | DRG 263 ==
LOC: HO.S3 12:47
PROVIDERS: Nurse Practitioner; Admitting Provider Surgery; PCP Student in an Organized Health Care Education/Training Program; Visit Provider Surgery
PROC: 0FT44ZZ Resection of Gallbladder, Percutaneous Endoscopic Approach (ICD-10-PCS; CPT 47562; principal; 2022-12-05 09:10)
DX: K80.10 Calculus of gallbladder with chronic cholecystitis without obstruction (principal); Z98.84 Bariatric surgery status; Z79.899 Other long term (current) drug therapy
CPT/HCPCS: 47562; 36415; 80048; 80053; 81025; 85025; 88304; J0690; J1100; J1170; J2250; J2370; J2405; J2550; J2795; J3010

== ENCOUNTER → 2022-12-12 12:51 | Outpatient (BNVA) | payer BC, SELFPAY | PROVIDERS: PCP Student in an Organized Health Care Education/Training Program; Visit Provider Surgery ==

== ENCOUNTER → 2022-12-19 14:22 | Outpatient (BNVA) | payer BC, SELFPAY | PROVIDERS: PCP Student in an Organized Health Care Education/Training Program; Visit Provider Surgery ==